=== PATIENT | female | born 1980 ===

== ENCOUNTER 2020-01-23 15:10 | Outpatient (REF) | payer MEDICAID, SELFPAY | END 2020-01-23 15:11 | disposition home or self-care (01) | LOC: HO.LAB 15:10 | PROVIDERS: PCP Student in an Organized Health Care Education/Training Program; Visit Provider Internal Medicine | DX: Z20.828 Contact with and (suspected) exposure to other viral communicable diseases (principal) | CPT/HCPCS: 87635 ==

== ENCOUNTER 2020-02-19 17:08 | Outpatient (REF) | payer MEDICAID, SELFPAY ==
--- NOTE | 2020-02-19 | XR_ITS ---
EXAMINATION: XR ELBOW, LEFT CLINICAL INFORMATION: Pain left elbow. COMPARISON: None TECHNIQUE: AP, lateral, and oblique views of the left elbow. FINDINGS: There is no visible acute fracture, dislocation or joint effusion. There is mild spurring along the anterior coronoid process. Mild periosteal thickening along the distal medial cortex ulnar side with intervening small defect, question old injury. No other abnormality seen. XR/XR elbow LT min 3V IMPRESSION: 1. Mild spurring along the anterior coronoid process. 2. Mild periosteal thickening along the medial distal humeral cortex ulnar side likely old injury. If patient has pain in this region, further evaluation with CT or MRI can be performed.
== END 2020-02-19 17:09 | disposition home or self-care (01) ==
LOC: HO.XRAY 17:08
PROVIDERS: PCP Student in an Organized Health Care Education/Training Program; Visit Provider Family Medicine
DX: M25.522 Pain in left elbow (principal)
CPT/HCPCS: 73080

== ENCOUNTER 2020-07-18 12:50 | Outpatient (REF) | payer MEDICAID, SELFPAY ==
[2020-07-18 14:06] LABS: COVID-19 Test Negative (Negative)
== END 2020-07-18 12:51 | disposition home or self-care (01) ==
LOC: HO.LAB 12:50
PROVIDERS: Visit Provider Internal Medicine
DX: Z20.822 Contact with and (suspected) exposure to COVID-19 (principal)
CPT/HCPCS: 36415; 87635; C9803

== ENCOUNTER 2020-09-18 14:04 | Outpatient (REF) | payer MEDICAID, SELFPAY ==
--- NOTE | ~2020-09-18 | US_ITS ---
EXAMINATION: US SOFT TISSUE OF THE NECK CLINICAL INFORMATION: Supraclavicular lymphadenopathy. COMPARISON: None TECHNIQUE: Linear transducer grayscale and color Doppler examination of the left supraclavicular area. FINDINGS: There are 4 left supraclavicular lymph nodes identified. These are normal in size and demonstrate normal ultrasound morphology and flow. The largest measures 7 x 8 x 8 mm. US/US soft tiss head and/or neck IMPRESSION: Four normal-appearing left supraclavicular lymph nodes.
== END 2020-09-18 14:05 | disposition home or self-care (01) ==
LOC: HO.US 14:04
PROVIDERS: Visit Provider Nurse Practitioner Family
DX: R59.0 Localized enlarged lymph nodes (principal)
CPT/HCPCS: 76536

== ENCOUNTER 2021-02-19 13:14 | Outpatient (REF) | payer MEDICAID, SELFPAY ==
--- NOTE | ~2021-02-19 | XR_ITS ---
EXAMINATION: XR SHOULDER, RIGHT. XR ELBOW, RIGHT. CLINICAL INFORMATION: Right arm pain COMPARISON: None TECHNIQUE: 4 views of the right shoulder. 3 views of the right elbow. FINDINGS: Right shoulder: Normal alignment. No fracture. No significant degenerative findings. Bone mineralization is normal. No suspicious soft tissue calcifications. Right elbow: Normal alignment. No fracture. No joint effusion. No significant degenerative findings. XR/XR elbow RT 2V IMPRESSION: Right shoulder: Normal. Right elbow: Normal.
--- NOTE | ~2021-02-19 | XR_ITS ---
EXAMINATION: XR SHOULDER, RIGHT. XR ELBOW, RIGHT. CLINICAL INFORMATION: Right arm pain COMPARISON: None TECHNIQUE: 4 views of the right shoulder. 3 views of the right elbow. FINDINGS: Right shoulder: Normal alignment. No fracture. No significant degenerative findings. Bone mineralization is normal. No suspicious soft tissue calcifications. Right elbow: Normal alignment. No fracture. No joint effusion. No significant degenerative findings. XR/XR shoulder RT min 2V IMPRESSION: Right shoulder: Normal. Right elbow: Normal.
== END 2021-02-19 13:15 | disposition home or self-care (01) ==
LOC: HO.XRAY 13:14
PROVIDERS: Absent Provider Student in an Organized Health Care Education/Training Program; PCP Student in an Organized Health Care Education/Training Program; Visit Provider Family Medicine
DX: M79.601 Pain in right arm (principal)
CPT/HCPCS: 73030; 73070

== ENCOUNTER 2021-09-09 09:40 | Outpatient (REF) | payer MEDICAID, SELFPAY ==
--- NOTE | ~2021-09-09 | US_ITS ---
EXAMINATION: US PELVIS CLINICAL INFORMATION: Abnormal uterine bleeding COMPARISON: Previous pelvic ultrasound August 2007 TECHNIQUE: Ultrasound of the pelvis is performed using both transabdominal and transvaginal transducers along with Doppler. Transvaginal imaging is performed due to inadequate visualization transabdominally. FINDINGS: The uterus is anteverted and measures 10 x 6.5 x 7.4 cm in dimension. There is a 3.3 x 2.8 x 2.6 cm hypoechoic lesion in the left anterior upper uterine body or lower fundus suggestive of a fibroid. No other focal uterine lesion is seen. Endometrial thickness is normal measuring 1.3 cm. The cervix is normal. The right ovary is enlarged and measures 5.5 x 3.7 x 3.8 cm. There is a 3.2 x 3.3 x 3.9 cm simple right ovarian cyst. The left ovary is normal and measures 2.5 x 0.9 x 2 cm. There is no fluid in the pelvis. US/US pelvic and transvaginal IMPRESSION: 3.2 x 3.3 x 3.9 cm uterine fibroid. Enlarged left ovary and 3.2 x 3.3 x 3.9 cm simple left ovarian cyst.
== END 2021-09-09 09:41 | disposition home or self-care (01) ==
LOC: HO.HMGCX 09:40
PROVIDERS: Visit Provider Advanced Practice Midwife
DX: N93.9 Abnormal uterine and vaginal bleeding, unspecified (principal)
CPT/HCPCS: 76830; 76856

== ENCOUNTER 2022-12-16 19:41 | Outpatient (REF) | payer MEDICAID, SELFPAY | END 2022-12-16 19:42 | disposition home or self-care (01) | LOC: HO.HHCL 19:41 | PROVIDERS: Visit Provider Pediatrics | DX: N30.01 Acute cystitis with hematuria (principal) | CPT/HCPCS: 87086 ==

== ENCOUNTER 2023-01-12 11:42 | Outpatient (REF) | payer MEDICAID, SELFPAY ==
[2023-01-12 14:31] LABS: Hematocrit 39.6 % (37.0-47.0); Hemoglobin 13.1 g/dl (12.0-16.0); Mean Corpuscular HGB Conc 33.1 g/dl (31.0-35.0); Mean Corpuscular Hemoglobin 27.3 pg (27.0-33.0); Mean Corpuscular Volume 82.5 fL (80.0-98.0); Mean Platelet Volume 9.8 fL (9.4-12.3); Platelet Count 436 X10*3/uL (160-400); Red Cell Distribution Width 13.2 % (11.0-16.0); White Blood Count 10.5 X10*3/uL (4.8-10.8)
[2023-01-12 15:07] LABS: TSH reflex Free T4 2.29 uIU/mL (0.32-4.0)
[2023-01-14 19:39] LABS: TS Negative Control Passed; TS Panel A 0; TS Panel B 0; TS Positive Control Passed; TSpotTB Negative (Negative)
== END 2023-01-12 11:43 | disposition home or self-care (01) ==
LOC: HO.CHCLDS 11:42
PROVIDERS: Visit Provider Advanced Practice Midwife
DX: Z11.1 Encounter for screening for respiratory tuberculosis (principal); N93.9 Abnormal uterine and vaginal bleeding, unspecified; A15.0 Tuberculosis of lung
CPT/HCPCS: 36415; 84443; 85027; 86481

== ENCOUNTER 2023-01-25 12:48 | Outpatient (REF) | payer MEDICAID, SELFPAY ==
--- NOTE | ~2023-01-25 | US_ITS ---
EXAMINATION: US PELVIS CLINICAL INFORMATION: Last menstrual period 01/05/2023. Fibroid. COMPARISON: 11/09/2021 TECHNIQUE: Ultrasound of the pelvis is performed using both transabdominal and transvaginal transducers along with Doppler. Transvaginal imaging is performed due to inadequate visualization transabdominally. FINDINGS: The uterus is anteverted, heterogeneous and measures 7.8 x 5.6 x 6.2 cm. A 3.8 x 3.4 x 3.9 cm hypoechoic lesion within the uterus is characteristic of a fibroid. Limited visualization due to bowel gas and uterine heterogeneity. Previous exam demonstrated a 3.3 x 2.8 x 2.6 cm left anterior upper uterine body or lower fundal fibroid. Double wall endometrial thickness is 0.6 cm. No significant free fluid in the pelvis. Right ovary measures 2.2 x 1.0 x 1.1 cm, volume 2.1 mL. Right ovary is unremarkable. Left ovary not visualized. US/US pelvic and transvaginal IMPRESSION: 1. A 3.9 cm hypoechoic lesion within the uterus is characteristic of a fibroid. Previous exam demonstrated a 3.3 cm left anterior upper uterine body or lower fundal fibroid. 2. Double wall endometrial thickness is 0.6 cm. 3. Unremarkable right ovary. Left ovary not visualized. 4. Limited visualization due to bowel gas.
== END 2023-01-25 12:49 | disposition home or self-care (01) ==
LOC: HO.HMGCX 12:48
PROVIDERS: PCP Student in an Organized Health Care Education/Training Program; Visit Provider Advanced Practice Midwife
DX: D21.9 Benign neoplasm of connective and other soft tissue, unspecified (principal)
CPT/HCPCS: 76830; 76856

== ENCOUNTER 2023-02-01 11:40 | Outpatient (REF) | payer MEDICAID, SELFPAY ==
[2023-02-01 14:25] LABS: MANUAL DIFF FLAG NO
[2023-02-01 14:30] LABS: Basophils Percent Auto 0.3 % (0-2); Eosinophils Absolute Auto 0.5 X10*3/uL (0.0-0.4); Eosinophils Percent Auto 4.7 % (0-4); Imm Gran Abs Auto 0.04 X10*3/uL (0.00-0.03); Imm Gran Pct Auto 0.4 % (0.0-0.4); Lymphocytes Percent Auto 28.4 % (20-40); Mean Corpuscular HGB Conc 32.5 g/dl (31.0-35.0); Mean Corpuscular Hemoglobin 26.7 pg (27.0-33.0); Mean Corpuscular Volume 82.1 fL (80.0-98.0); Mean Platelet Volume 9.7 fL (9.4-12.3); Monocytes Absolute Auto 0.5 X10*3/uL (0.1-1.2); Monocytes Percent Auto 5.2 % (2-11); Neutrophils Absolute Auto 6.4 x10*3/uL (2.0-8.3); Platelet Count 409 X10*3/uL (160-400); Red Blood Count 4.87 X10*6/uL (4.20-5.50); Red Cell Distribution Width 13.2 % (11.0-16.0); White Blood Count 10.4 X10*3/uL (4.8-10.8)
[2023-02-01 15:02] LABS: Vitamin D 25-OH Total 39.9 ng/mL (>30)
== END 2023-02-01 11:41 | disposition home or self-care (01) ==
LOC: HO.CHCLDS 11:40
PROVIDERS: Visit Provider Student in an Organized Health Care Education/Training Program
DX: E55.9 Vitamin D deficiency, unspecified (principal); R79.89 Other specified abnormal findings of blood chemistry
CPT/HCPCS: 36415; 82306; 85025

== ENCOUNTER 2023-02-02 10:55 | Outpatient (REF) | payer MEDICAID, SELFPAY ==
[2023-02-03 04:25] LABS: ~HepC Num1 0.06 S/CO (0.00-0.79); ~Hepatitis C Antibody Nonreactive (Nonreactive)
[2023-02-05 19:08] LABS: HIV RNA PCR Qn Copies Not Detected Copies/mL; HIV RNA PCR Qn Log Copies Not Detected Log cps/mL
== END 2023-02-02 10:56 | disposition home or self-care (01) ==
LOC: HO.CHCLDS 10:55
PROVIDERS: Visit Provider Student in an Organized Health Care Education/Training Program
DX: Z00.00 Encounter for general adult medical examination without abnormal findings (principal)
CPT/HCPCS: 36415; 86803; 87536; 87900

== ENCOUNTER 2023-07-13 08:07 | Outpatient (REF) | payer MEDICAID, SELFPAY ==
--- NOTE | ~2023-07-13 | FL_ITS ---
EXAMINATION: XR FLUOROSCOPY UPPER GI WITH AIR CLINICAL INFORMATION: Dysphagia COMPARISON: None TECHNIQUE: Fluoroscopic air contrast upper GI examination was performed utilizing standard techniques with thin and thick barium and effervescent granules. Numerous spot images were obtained. FINDINGS: Lateral cine images of the oropharynx and hypopharynx demonstrate normal swallow mechanism with normal epiglottic inversion and soft palate elevation. No tracheal penetration, glottic or subglottic aspiration identified. No nasopharyngeal reflux present. Hypopharyngeal structures appear normal without evidence of mass or diverticulum. There was mild cricopharyngeal achalasia. Dual and single contrast images of the esophagus demonstrate normal caliber and contour. There is felinization of the mid esophageal mucosa. No evidence of stricture, mass, or ulcerations identified. Esophageal peristalsis was normal. A very small type I hiatal hernia is present. Gastroesophageal reflux is seen up to the aortic arch. Dual contrast and single contrast images of the stomach demonstrated a normal contour. There are multiple small well-circumscribed filling defects in the fundus and body of the stomach that likely represent hyperplastic polyps. There is mild thickening of the areae gastricae, particularly in the distal body and antrum. No masses or ulcerations are seen. Contrast freely passed into the gastric antrum and duodenal bulb without delay. Single and air-contrast images of the duodenal bulb demonstrate no abnormality. The duodenal sweep has a normal appearance, course, and mucosal fold appearance. No malrotation. The imaged proximal jejunum has a normal fold pattern and caliber. FLUOROSCOPY TIME: 3 minutes 3 seconds Number of Spot Images: 9 Number of Cine: 12 DOSE AREA PRODUCT: 1917 uGy-m2 (microgray-meter squared) FL/FL barium swallow with air IMPRESSION: 1. Felinization of the mid esophageal mucosa. This is a benign finding that is typically associated with gastroesophageal reflux. 2. Mild cricopharyngeal achalasia. 3. Small type I hiatal hernia. 4. Mild to moderate gastroesophageal reflux. 5. Multiple small well-circumscribed filling defects in the fundus and body the stomach that likely represent hyperplastic polyps. There is mild thickening of the areae gastricae, particularly in the distal body and antrum. Findings likely represent gastritis. Recommend correlation with EGD. This procedure was performed by Erick Heredia PA-C, and supervised by Dr. London
== END 2023-07-13 08:08 | disposition home or self-care (01) ==
LOC: HO.XRAY 08:07
PROVIDERS: PCP Student in an Organized Health Care Education/Training Program; Visit Provider Family Medicine
DX: R13.10 Dysphagia, unspecified (principal)
CPT/HCPCS: 74221

== ENCOUNTER → 2023-07-13 08:09 | Outpatient (BNV) | payer MEDICAID, SELFPAY | PROVIDERS: PCP Student in an Organized Health Care Education/Training Program; Visit Provider Physician Assistant Surgical | DX: R13.10 Dysphagia, unspecified (principal) | CPT/HCPCS: 74221 ==

== ENCOUNTER 2023-08-05 10:26 | Outpatient (AMB) | payer MEDICAID, SELFPAY ==
--- NOTE | 2023-08-05 10:42 | A.OFFVIS_ITS ---
Vital Signs 08/05/23 10:44 Height 5 ft 2 in Weight 150 lb BMI 27.4 BP 108/60 Intake Visit Reasons: AUB/wants ablation/PCP referral Direct Customer Service Representative Required: No Information Interpreted: non-clinical & clinical Tobacco Conditioner: Tobacco Conditioner Present (Yolande Hawley BUBBA) Accompanied by: Self / Same As Patient Allergies No Known Allergies Allergy (Unknown, Unverified 08/05/23 10:45) Is last menstrual period known: Yes Last menstrual period: 08/02/23 HPI Comments Details: Presenting complaining of irregular menstrual cycles associated with passage of blood clots and pelvic cramps. PFSH Medical History GERD (gastroesophageal reflux disease) Depression Anxiety Surgical History Hx of tubal ligation Family History Mother HTN (hypertension) Stroke (cerebrum) Father Heart attack Other Diabetes Social History Household Members: Children Housing: House Alcohol intake: current Alcohol intake frequency: holidays/special occasions only Patient Tobacco Use Status: Never used Tobacco Current occupational status: employed Current occupation: [employer] Sexually active: Yes Sexual orientation: Straight/Heterosexual Gender identity: Female Female Reproductive History Menstrual Date of last menstrual period: 08/02/23 control method: permanent sterilization Total pregnancies: 4 Full term: 4 Number of Living Children: 4 Review of Systems Const All systems reviewed & are unremarkable except as noted in HPI and below Card Reports as per HPI Resp Reports as per HPI GI Reports as per HPI and Reports no additional complaints Reports as per HPI Physical Exam Vital Signs: Last Vital Signs BP 108/60 08/05/23 10:44 BMI result Body Mass Index 27.4 Const General: cooperative, healthy appearing and comfortable Chest Chest palpation & inspection: normal inspection of the chest and normal palpation of entire chest wall Breast/axilla inspection: normal inspection of the breasts and normal inspection of the axillae Breast/axilla palpation: normal palpation of the breasts, normal palpation of the axillae and no axillary lymphadenopathy Resp Effort & Inspection: normal respiratory effort Auscultation: clear to auscultation bilaterally Percussion: percussion normal Cardio Palpation: normal PMI Rate: regular rate Rhythm: regular rhythm Heart sounds: no murmurs and no rubs Peripheral pulses: Peripheral pulses 2+ throughout GI Inspection: Yes normal to inspection Palpation (GI): Soft to palpation, nontender, no guarding, not rigid and No hepatosplenomegaly present Percussion: Yes normal to percussion Auscultation: normal bowel sounds Rectal Exam - Female: deferred General: Yes bladder normal to palpation External Female Exam: No lesion Speculum Exam - Vagina: normal appearance of the vagina, normal palpation, normal vaginal discharge and not erythematous Speculum Exam - Cervix: normal appearance of the cervix and normal palpation Bimanual exam- vagina & uterus: normal bimanual exam, normal palpation, uterine size normal, bladder normal to palpation, consistency normal and normal palpation Bimanual Exam- Adnexa, other: normal adnexae, no masses and no tenderness Results AMB Test Urine AMB Test Urine Negative Last Edit by Yolande Hawley CMA on 10:56 Results Reviewed Results Reviewed: Laboratory Last Values Tst Clinic Negative 08/05/23 10:55 Assessment & Plan Assessment & Plan (1) Abnormal uterine bleeding: Code(s): N93.9 - Abnormal uterine and vaginal bleeding, unspecified Category: Medical Plan: Screening mammogram, Co testing done, GC and chlamydia taken CBC, TSH, prolactin, HCG, and pelvic ultrasound ordered. Discussed with the patient the different causes of abnormal bleeding including thyroid disorders, uterine and ovarian pathology, endometrial hyperplasia, carcinoma and other potential causes. Discussed with the patient the work up including CBC (to r/o anemia), TSH, prolactin, pelvic Ultrasound, endometrial biopsy to r/o endometrial pathology. All questions answered and the patient verbalized understanding. Instructed the patient to schedule an appointment for an endometrial biopsy in 2 weeks. Orders: Orders AMB HCG Urine Test Today Z32.02 - Encounter for test, result negative MM screening mammo BI Today Z12.31 - Encounter for screening mammogram for malignant neoplasm of breast TSH reflex Free T4 Today N93.9 - Abnormal uterine and vaginal bleeding, unspecified Prolactin Today N93.9 - Abnormal uterine and vaginal bleeding, unspecified Complete Blood Count no Diff Today N93.9 - Abnormal uterine and vaginal bleeding, unspecified Pap Smear Today N93.9 - Abnormal uterine and vaginal bleeding, unspecified CT NG by PCR Today N93.9 - Abnormal uterine and vaginal bleeding, unspecified US pelvic and transvaginal Today N93.9 - Abnormal uterine and vaginal bleeding, unspecified HCG Quantitative Today N93.9 - Abnormal uterine and vaginal bleeding, unspecified Coding Level of Care Code New Pt Level 3 (11770) Diagnoses Abnormal uterine bleeding N93.9
[2023-08-05 10:44] VITALS: BP 108/60; BMI 27.4
== END 2023-08-05 11:07 | disposition home or self-care (01) ==
PROVIDERS: PCP Student in an Organized Health Care Education/Training Program; Referring Provider Student in an Organized Health Care Education/Training Program; Visit Provider Obstetrics & Gynecology
DX: N93.9 Abnormal uterine and vaginal bleeding, unspecified (principal); Z32.02 Encounter for pregnancy test, result negative
CPT/HCPCS: 99203

== ENCOUNTER 2023-08-05 10:26 | Outpatient (REF) | payer MEDICAID, SELFPAY ==
[2023-08-05 18:23] LABS: CT PCR NOT DETECTED (Not Detect.); NG PCR NOT DETECTED (Not Detect.)
[2023-08-13 03:14] LABS: HPV mRNA E6/E7 rflx Not Detected (Not Detected)
== END 2023-08-05 10:27 | disposition home or self-care (01) ==
LOC: HO.LNP 10:26
PROVIDERS: PCP Student in an Organized Health Care Education/Training Program; Visit Provider Obstetrics & Gynecology
DX: N93.9 Abnormal uterine and vaginal bleeding, unspecified (principal); Z11.51 Encounter for screening for human papillomavirus (HPV)
CPT/HCPCS: 0353U; 81025; 87624; 88142; 99202

== ENCOUNTER → 2023-09-08 10:15 | Outpatient (BNV) | payer MEDICAID, SELFPAY | PROVIDERS: PCP Student in an Organized Health Care Education/Training Program; Visit Provider Radiology Diagnostic Radiology | DX: Z12.31 Encounter for screening mammogram for malignant neoplasm of breast (principal) | CPT/HCPCS: 77063; 77067 ==

== ENCOUNTER 2023-09-08 10:17 | Outpatient (REF) | payer MEDICAID, SELFPAY ==
--- NOTE | ~2023-09-08 | MM_ITS ---
EXAMINATION: MM SCREENING DIGITAL BREAST TOMOSYNTHESIS, BILATERAL CLINICAL INFORMATION: Screening. Asymptomatic. COMPARISON: Mammography: This is a baseline mammogram TECHNIQUE: Digital breast tomosynthesis is performed in both the craniocaudal and mediolateral oblique views along with computer-aided detection (CAD). Synthesized 2D images are generated from the tomosynthesis. FINDINGS: There are scattered areas of fibroglandular density (ACR BI-RADS breast composition Category b). There are no significant masses, abnormal calcifications, or other abnormalities. MM/MM tomosynthesis screening BI IMPRESSION: No mammographic evidence of malignancy. ASSESSMENT: BI-RADS BI-RADS 1 - Negative RECOMMENDATION: Routine annual mammography screening. 1 year F/U This examination should not preclude the clinical evaluation of a suspicious palpable abnormality. This patient's information was entered into a reminder system with a target due date for their next mammogram.
== END 2023-09-08 10:18 | disposition home or self-care (01) ==
LOC: HO.MAMMO 10:17
PROVIDERS: PCP Student in an Organized Health Care Education/Training Program; Visit Provider Obstetrics & Gynecology
DX: Z12.31 Encounter for screening mammogram for malignant neoplasm of breast (principal)
CPT/HCPCS: 77063; 77067

== ENCOUNTER 2023-09-09 14:02 | Outpatient (REF) | payer MEDICAID, SELFPAY ==
--- NOTE | ~2023-09-09 | US_ITS ---
EXAMINATION: US PELVIS CLINICAL INFORMATION: Abnormal uterine bleeding, last menstrual period August 24, 2023. COMPARISON: January 25, 2023 TECHNIQUE: Ultrasound of the pelvis is performed using both transabdominal and transvaginal transducers along with Doppler. Transvaginal imaging is performed due to inadequate visualization transabdominally. FINDINGS: Uterus anteverted and measures 8.3 x 5.7 x 6.7 cm. 3.8 x 3.0 x 3.9 cm hypoechoic lesion characteristic of a fibroid previously measured 3.8 x 3.4 x 3.9 cm. Endometrial thickness of 9 mm. The 3.9 cm fibroid abuts the endometrium. Limited visualization of the endometrium due to the fibroid as well as body habitus. No significant free fluid. Right ovary poorly visualized and seen only on transabdominal ultrasound images. Right ovary measures 2.4 x 1.1 x 2.3 cm, volume 3.2 mL. Left ovary seen only on limited transabdominal ultrasound images and measures 3.4 x 1.9 x 3.9 cm, volume 13.2 mL. Left ovarian 1.7 x 1.5 x 1.7 cm simple cyst, likely physiologic. There is no specific indication for additional imaging at this time. US/US pelvic and transvaginal IMPRESSION: 1. Endometrial thickness of 9 mm. The 3.9 cm fibroid abuts the endometrium. Limited visualization of the endometrium due to the fibroid as well as body habitus. Gynecologic consultation recommended to determine further management including possible biopsy.
[2023-09-09 15:59] LABS: Hematocrit 36.6 % (37.0-47.0); Hemoglobin 11.9 g/dl (12.0-16.0); Mean Corpuscular HGB Conc 32.5 g/dl (31.0-35.0); Mean Corpuscular Hemoglobin 25.9 pg (27.0-33.0); Mean Corpuscular Volume 79.7 fL (80.0-98.0); Mean Platelet Volume 9.9 fL (9.4-12.3); Platelet Count 384 X10*3/uL (160-400); Red Blood Count 4.59 X10*6/uL (4.20-5.50); Red Cell Distribution Width 14.3 % (11.0-16.0); White Blood Count 10.9 X10*3/uL (4.8-10.8)
[2023-09-09 16:29] LABS: HCG Quantitative < 2 mIU/mL; TSH reflex Free T4 1.13 uIU/mL (0.32-4.0)
[2023-09-10 07:34] LABS: Prolactin 9.3 ng/mL
== END 2023-09-09 14:03 | disposition home or self-care (01) ==
LOC: HO.HMGCX 14:02
PROVIDERS: PCP Student in an Organized Health Care Education/Training Program; Visit Provider Obstetrics & Gynecology
DX: N93.9 Abnormal uterine and vaginal bleeding, unspecified (principal)
CPT/HCPCS: 36415; 76830; 76856; 84146; 84443; 84702; 85027

== ENCOUNTER 2023-09-10 13:01 | Outpatient (REF) | payer MEDICAID, SELFPAY ==
[2023-09-11 03:07] LABS: CT PCR NOT DETECTED (Not Detect.); NG PCR NOT DETECTED (Not Detect.)
[2023-09-11 11:05] LABS: Bacterial Vaginosis PCR POSITIVE (Negative); Candida Group PCR DETECTED (Not Detect); Candida glab krusei PCR NOT DETECTED (Not Detect); Trichomonas vaginalis PCR NOT DETECTED (Not Detect)
[2023-09-13 04:04] LABS: HBS Num1 7.83 mIU/mL (0-7.99); HBc Num1 0.14 S/CO (0.00-0.79); HBsAGNum1 0.38 S/CO (0.00-0.99); HIV AB/AG Nonreactive (Nonreactive); HIV Num 1 0.07 S/CO (0.00-0.99); Hepatitis B Core Antibody Nonreactive (Nonreactive); Hepatitis B Surface Antigen Negative (Negative); ~HepC Num1 0.09 S/CO (0.00-0.79); ~Hepatitis B Surface Antibody NONREACTIVE (Nonreactive); ~Hepatitis C Antibody Nonreactive (Nonreactive)
[2023-09-13 10:49] LABS: RPR Rapid Plasma Reagin NON-REACTIVE (NON-REACTIVE)
== END 2023-09-10 13:02 | disposition home or self-care (01) ==
LOC: HO.HHCL 13:01
PROVIDERS: Visit Provider Emergency Medicine
DX: N89.8 Other specified noninflammatory disorders of vagina (principal)
CPT/HCPCS: 0352U; 0353U; 36415; 86592; 86704; 86706; 86803; 87340; 87389

== ENCOUNTER 2023-12-21 11:30 | Emergency (ER) | payer MEDICAID, SELFPAY ==
--- NOTE | ~2023-12-21 | CT_ITS ---
EXAMINATION: CT HEAD WITHOUT CONTRAST CLINICAL INFORMATION: Headache. Dizziness. Lightheadedness. Blurry vision. COMPARISON: None available. TECHNIQUE: Contiguous axial imaging was performed from the skull base to vertex without intravenous administration of contrast. This CT examination was performed using dose optimization techniques as appropriate, variously including the following: *Automated exposure control. *Adjustment of mA and/or kV according to patient size (this includes techniques or standardized protocols for targeted exams where dose is matched to indication/reason for exam; i.e. extremities or head). *Use of iterative reconstruction technique. DLP: 631 mGy-cm FINDINGS: There is no evidence of acute intracranial hemorrhage or edematous territorial infarction. Potential tubular hyperattenuating structure in the left frontal operculum with surrounding white matter hypoattenuation. Otherwise, brink-white matter differentiation is preserved. No additional abnormal attenuation within the brain parenchyma. Persistent cavum septum pellucidum et vergae. The ventricles are normal in morphology and size. No evidence for obstructive hydrocephalus. No abnormal mass effect or midline shift. No extra-axial fluid collections. No acute soft tissue or osseous abnormalities. Congenital nonunion of the posterior arch of C1. The mastoid air cells and visualized paranasal sinuses are clear. CT/CT head/brain wo IV con IMPRESSION: 1. No evidence of acute intracranial hemorrhage or edematous territorial infarction. 2. There appears to be a tubular hyperattenuating structure in the left frontal operculum suggestive of an underlying vascular malformation (potentially an arteriovenous malformation versus developmental venous anomaly). This could be further characterized with follow-up vascular imaging (CTA or MRI/MRA with contrast). Electronically signed by: Lalo Damon DO 12/21/2023 08:04 PM EDT
--- NOTE | ~2023-12-21 | CT_ITS ---
EXAMINATION: CT ANGIOGRAM HEAD CT ANGIOGRAM NECK CLINICAL INFORMATION: Dizziness. Left frontal arteriovenous malformation. COMPARISON: CT head from 12/21/2023. TECHNIQUE: Initial noncontrast consumer services consultant imaging of the head and neck was performed. Comparison is made with noncontrast head CT from earlier today. Test bolus sequences followed by intravenous administration 70 mL of Omnipaque 350. Helical imaging was performed in the axial plane from the aortic arch to the skull vertex. Delayed postcontrast imaging of the head was also performed. The data was processed at the process safety engineering technologist's workstation for generation of MIP sequences. Angled MIPs and volume rendered reformatted images were also generated at an offline 3D workstation. Stenoses are assessed in accordance with NASCET criteria unless otherwise indicated. This CT examination was performed using dose optimization techniques as appropriate, variously including the following: *Automated exposure control. *Adjustment of mA and/or kV according to patient size (this includes techniques or standardized protocols for targeted exams where dose is matched to indication/reason for exam; i.e. extremities or head). *Use of iterative reconstruction technique. DLP: 1416 mGy-cm FINDINGS: CT Head: There is no evidence of acute intracranial hemorrhage or edematous territorial infarction. Arterial enhancing tingle of irregular vessels centered in the left frontal operculum with nidus measuring approximately 1.4 x 1.3 x 1.3 cm. Ectatic venous structures in this region measure up to 0.4 cm in diameter. Otherwise, brink-white matter differentiation is preserved. No additional abnormal attenuation within the brain parenchyma. Persistent cavum septum pellucidum et vergae. The ventricles are normal in morphology and size. No evidence for obstructive hydrocephalus. No abnormal mass effect or midline shift. No extra-axial fluid collections. No additional abnormal intracranial enhancement. No acute soft tissue or osseous abnormalities. Mild mucosal thickening of the paranasal sinuses. The mastoid air cells and middle ear cavities are clear. CT Neck: The thyroid gland and remaining cervical soft tissues are within normal limits. Moderate degenerative disc disease from C5-C7. Congenital nonunion of the posterior arch of C1. CT Upper Chest: The visualized lung apices and upper mediastinum are within normal limits. Neck CTA: Aortic Arch: Normal contour and caliber. Classic 3 vessel branching pattern of the aortic arch. Great Vessel Origins: No significant stenosis of the branch origins. Right Common Carotid Artery: No focal stenosis or occlusion. Cervical Right Internal Carotid Artery: Normal opacification without focal stenosis or occlusion. Left Common Carotid Artery: No focal stenosis or occlusion. Cervical Left Internal Carotid Artery: Normal opacification without focal stenosis or occlusion. Cervical Right Vertebral Artery: Co-dominant. No focal stenosis or occlusion. Cervical Left Vertebral Artery: Co-dominant. No focal stenosis or occlusion. Brain CTA: Intracranial Internal Carotid Arteries: Mild calcific atherosclerotic disease of the intracranial internal carotid arteries without occlusion or flow-limiting stenosis. Right Anterior Cerebral Artery: Normal A1 segment. Normal opacification of the distal DASHAWN segments. Left Anterior Cerebral Artery: Normal A1 segment. Normal opacification of the distal DASHAWN segments. Anterior Communicating Artery: Normal. Right Middle Cerebral Artery: Normal M1 segment of the MCA without focal stenosis or occlusion. Normal arborization of the distal segments. Left Middle Cerebral Artery: Normal M1 segment of the MCA without focal stenosis or occlusion. Normal arborization of the distal segments. Right Vertebral Artery: Normal V4 segment. Normal opacification of the proximal segments of the posterior inferior cerebellar artery. Left Vertebral Artery: Normal V4 segment. Normal opacification of the proximal segments of the posterior inferior cerebellar artery. Basilar Artery: Normal without focal stenosis or occlusion. Normal appearance of the proximal superior cerebellar arteries. Right Posterior Cerebral Artery: The P1 segment is diminutive. origin of the [employer]MENT [employer]NAGER with robust opacification of the posterior communicating artery. Normal opacification of the distal [employer]MENT MANAGER segments. Left Posterior Cerebral Artery: Normal P1 segment. Normal posterior communicating artery. Normal opacification of the distal [employer]MENT MANAGER segments. Normal opacification of the superior sagittal, straight, transverse, and sigmoid sinuses. CT/CT angio head neck IMPRESSION: 1. 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 Ectatic venous structures in this region measure up to 0.4 cm in diameter. 2. No evidence of acute intracranial hemorrhage or edematous territorial infarction. 3. CTA of the head and neck without proximal occlusion or flow-limiting stenosis. Electronically signed by: Lalo Damon DO 12/21/2023 10:25 PM EDT
[2023-12-21 11:44] VITALS: BP 124/84; PULSE 90; RESP 18; TEMP 37.1; O2SAT 99; BMI 29.3
[2023-12-21] MEDS: Ondansetron ODT 4 MG TAB.RAPDIS TRANSLINGU ×2 (11:55→23:59)
[2023-12-21 12:38] LABS: MANUAL DIFF FLAG NO
[2023-12-21 12:45] LABS: Basophils Absolute Auto 0.1 X10*3/uL (0.0-0.2); Basophils Percent Auto 0.4 % (0-2); Eosinophils Absolute Auto 0.2 X10*3/uL (0.0-0.4); Eosinophils Percent Auto 1.7 % (0-4); Hematocrit 39.8 % (37.0-47.0); Hemoglobin 13.4 g/dl (12.0-16.0); Imm Gran Abs Auto 0.04 X10*3/uL (0.00-0.03); Imm Gran Pct Auto 0.3 % (0.0-0.4); Lymphocytes Absolute Auto 1.9 X10*3/uL (1.2-4.9); Lymphocytes Percent Auto 16.6 % (20-40); Mean Corpuscular HGB Conc 33.7 g/dl (31.0-35.0); Mean Corpuscular Hemoglobin 27.1 pg (27.0-33.0); Mean Corpuscular Volume 80.4 fL (80.0-98.0); Mean Platelet Volume 9.1 fL (9.4-12.3); Monocytes Absolute Auto 0.6 X10*3/uL (0.1-1.2); Monocytes Percent Auto 4.8 % (2-11); Neutrophils Absolute Auto 8.8 x10*3/uL (2.0-8.3); Neutrophils Percent Auto 76.2 % (45-73); Platelet Count 414 X10*3/uL (160-400); Red Blood Count 4.95 X10*6/uL (4.20-5.50); Red Cell Distribution Width 13.1 % (11.0-16.0); White Blood Count 11.5 X10*3/uL (4.8-10.8)
[2023-12-21 13:08] LABS: Alanine Aminotransferase 14 U/L (0-31); Albumin Level 4.3 g/dL (3.5-5.0); Alkaline Phosphatase 115 U/L (39-117); Anion Gap 10 (12-20); Aspartate Amino Transferase 18 U/L (5-31); Bilirubin Total 0.4 mg/dL (0.0-1.0); Blood Urea Nitrogen 5 mg/dL (9-16); Calcium 9.5 mg/dL (8.4-10.2); Carbon Dioxide 27 mmol/L (22-29); Chloride 106 mmol/L (96-108); Creatinine Clr Calc Pharmacy 93.6; Estimated Glomerular Filt Rate > 60; Glucose Random 96 mg/dL (60-115); Lipase 16 U/L (8-78); Magnesium 2.2 mg/dL (1.6-2.6); Potassium 4.2 mmol/L (3.3-5.1); Sodium 139 mmol/L (135-145); Total Protein 8.3 g/dL (6.5-8.0)
[2023-12-21 13:11] LABS: HCG Quantitative < 2 mIU/mL
[2023-12-21 18:19] VITALS: BP 117/64; PULSE 80; RESP 16; TEMP 36.8; O2SAT 100
[2023-12-21 18:48] VITALS: BP 129/75; PULSE 75
[2023-12-21 18:49] VITALS: BP 116/79; PULSE 89
--- NOTE | 2023-12-21 18:51 | ED_ITS ---
HPI - Dizziness General Chief Complaint: Dizziness Stated Complaint: Nausea, dizziness Time Seen by Provider: 12/21/23 17:22 Source: patient, RN notes reviewed and old records reviewed Mode of arrival: ambulatory History of Present Illness ED Provider: Makayla Jules PA-C HPI Narrative: C Also reports intermittent bilateral blurry vision. Denies taking anticoagulation. Also reports increasing anxiety related to symptoms. Denies recent head trauma/injury, vomiting, CP/SOB, numbness, tingling, focal weakness. Related Data Home Medications ?Medication ?Instructions ?Recorded ?Confirmed citalopram 10 mg tablet (Celexa) 10 mg PO DAILY 08/05/23 pantoprazole 40 mg tablet,delayed 40 mg PO QAM 08/05/23 release Previous Rx's ?Medication ?Instructions ?Recorded ggwhveiodi-liuokfizbxzkr-trfaklkw 1 cap PO Q6H PRN pain #10 caps 12/21/23 50 mg-300 mg-40 mg capsule (Fioricet) ondansetron 4 mg disintegrating 4 mg PO Q8H PRN nausea and 12/21/23 tablet vomiting #10 tabs Allergies Allergy/AdvReac Type Severity Reaction Status Date / Time No Known Allergies Allergy Unknown Verified 12/21/23 11:48 Review of Systems 2 Review of Systems: Yes all other systems are reviewed and are negative Constitutional: Constitutional: Reports as per HPI Neurologic: Denies Abnormal speech present and Denies Sensory deficit (Neuro) [facility] Past Medical History Attestation statement: The following information was validated with the patient. 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 Sexual orientation: Straight/Heterosexual Gender identity: Female Physical Exam 2 Vital Signs: Vital Signs: Last Vital Signs Temp 98.3 F 12/21/23 22:27 Pulse 82 12/21/23 22:27 Resp 12 12/21/23 22:27 BP 117/66 12/21/23 22:27 Pulse Ox 99 12/21/23 22:27 O2 Del Method Room Air 12/21/23 22:27 BMI result Body Mass Index 29.3 Const: General: cooperative, healthy appearing and no acute distress O rientation/consciousness: patient oriented x3 Limitations: no limitations HEENT: Head: Yes normal to inspection and Yes atraumatic Ears: hearing grossly normal bilaterally and TM's normal bilaterally General nose exam: N ormal external nose present Face and sinus: Yes normal facial exam Mouth: Normal oral and palatal mucosa present Throat: Yes posterior oropharynx normal, Yes tonsils normal, Yes uvula midline, No peritonsillar mass, No uvula laterally displaced and No uvular edema Eyes: General: appearance normal, both eyes and all related structures P upils: Equal, round and reactive pupils present EOM: EOMs intact bilaterally and No Nystagmus present Neck: Neck: Yes normal visual inspection and Yes no meningeal signs Resp: Effort & Inspection: normal respiratory effort and no respiratory distress Auscultation: clear to auscultation bilaterally Cardio: Rate: regular rate Heart sounds: S1 normal heart sound present and S2 normal heart sound present GI: Inspection: Yes normal to inspection Palpation (GI): Soft to palpation, nontender, no guarding and not rigid : General: Yes no CVA tenderness Back/Spine/Pelvis: Other: No midline cervical/thoracic/lumbar spinous tenderness/step-off or deformity Back: no CVA tenderness Skin: Rashes: no rashes Wounds: no wounds Neuro: General: patient oriented x3, gait normal, tone normal, moves all extremities, no meningeal signs, no focal motor deficits and CN's II-XI intact bilaterally Cranial nerves: Yes CN's II-XII intact bilaterally, Yes Equal, round and reactive pupils present, Yes Bilaterally intact EOM present and No Nystagmus present Cognition (Neuro): normal cognition Speech: No Abnormal speech present Gait exam (Neuro): Normal gait present Motor exam (neuro): 5/5 motor strength present throughout, Pronator motor function not present and no tremor noted Sensory Exam: No Sensory deficit (Neuro) Coordination: f fuqae-va-ajtl test normal Romberg Test: Negative Extrem: General: Yes normal to inspection Course Course Course Narrative: -labs reassuring -orthostatic vital signs negative -1899--ED care transferred to [facility] pending EKG, orthostatics, remaining labs/UA and head CT. Dispo per results. Reevaluation(s) Reevaluation #1: CT/CT head/brain wo IV con IMPRESSION: 1. No evidence of acute intracranial hemorrhage or edematous territorial infarction. 2. There appears to be a tubular hyperattenuating structure in the left frontal operculum suggestive of an underlying vascular malformation (potentially an arteriovenous malformation versus developmental venous anomaly). This could be further characterized with follow-up vascular imaging (CTA or MRI/MRA with contrast). CT angio head and neck to be obtained for further evaluation. Headache at this time has resolved after receiving Fioricet. EKG revealing normal sinus rhythm with ventricular rate of 77, QTC 430, no ST elevation, no ST depression. High sensitive troponin below detectable limits. HCG is negative. LFTs and lipase within normal range, no evidence of MIGDALIA or electrolyte derangement. Viral serologies were negative. Urinalysis without compelling evidence of urinary tract infection. Reevaluation #2: CT/CT angio head neck IMPRESSION: 1. 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 Ectatic venous structures in this region measure up to 0.4 cm in diameter. 2. No evidence of acute intracranial hemorrhage or edematous territorial infarction. 3. CTA of the head and neck without proximal occlusion or flow-limiting stenosis. Reviewed this case with my attending Dr. Pittman, did not feel as though the AVM was the likely etiology of the symptoms that brought her here today, as there was no evidence of ICH or aneurysm. We discussed strict return precautions, outpatient follow-up with PCP assistance for neurosurgery referral. All questions answered. Stable for discharge Medications Administered Discontinued Medications Generic Name Dose Route Start Last Admin Trade Name Freq PRN Reason Stop Dose Admin Acetaminophen/Butalbital/Caffeine 1 tab 12/21/23 18:55 12/21/23 19:12 Butalb/Acetamin/Caff 50/325/40 Tablet PO 12/21/23 18:56 1 tab ONCE ONE Administration Sodium Chloride 1,000 mls @ 999 mls/hr 12/21/23 20:30 12/21/23 20:37 Ns IV 12/21/23 21:30 999 mls/hr .Q1H1M GUERITA Administration Iohexol 70 ml 12/21/23 21:17 12/21/23 21:18 Iohexol 350 Mg/Ml 100 Ml Infus..Btl IV 12/21/23 21:18 70 ml ONCE ONE Administration Ondansetron HCl 4 mg 12/21/23 11:52 12/21/23 11:55 Ondansetron Odt 4 Mg Tab.Rapdis TRANSLINGU 12/21/23 11:53 4 mg ONCE ONE Administration Medical Decision Making Medical Decision Making [facility] Narrative: 43-year-old female with a past medical history of GERD, depression, anxiety, presenting to the ED complaining lightheadedness, room spinning dizziness, nausea, and dull headache times 2-3 days. On exam vital signs stable, NAD, nontoxic appearing, no focal neuro deficits, ambulating with steady gait, no ataxia. Concern for metabolic abnormalities vs viral illness vs anxiety reaction vs complicated migraine vs atypical ACS vs vertigo. Lower suspicion for CVA/TIA or mass or dissection Plan: EKG, labs, UA, orthostatics, head CT, symptomatic remedies/re-evaluate Please refer to course for remaining clinical decision making, interpretation of labs/imaging results, and discussions with consultants and/or family members. Differential Diagnosis Differential Diagnoses: The differential diagnosis associated with the presentation includes As above Admission/Observation Consideration of admission/observation: Escalation of care including admission/observation considered Lab Data [facility] Lab Attestation statement: I reviewed the patient's lab results. 12/21/23 12:33 12/21/23 12:33 Labs: Lab Results 12/21/23 12/21/23 Range/Units 12:33 19:08 WBC 11.5 H (4.8-10.8) X10*3/uL RBC 4.95 (4.20-5.50) X10*6/uL Hgb 13.4 (12.0-16.0) g/dl Hct 39.8 (37.0-47.0) % MCV 80.4 (80.0-98.0) fL MCH 27.1 (27.0-33.0) pg MCHC 33.7 (31.0-35.0) g/dl RDW 13.1 (11.0-16.0) % Plt Count 414 H (160-400) X10*3/uL MPV 9.1 L (9.4-12.3) fL Immature Gran % (Auto) 0.3 (0.0-0.4) % Neut % (Auto) 76.2 H (45-73) % Lymph % (Auto) 16.6 L (20-40) % [place] % (Auto) 4.8 (2-11) % Eos % (Auto) 1.7 (0-4) % Baso % (Auto) 0.4 (0-2) % Lymph # (Auto) 1.9 (1.2-4.9) X10*3/uL [place] # (Auto) 0.6 (0.1-1.2) X10*3/uL Eos # (Auto) 0.2 (0.0-0.4) X10*3/uL Baso # (Auto) 0.1 (0.0-0.2) X10*3/uL Abs Immat Gran (auto) 0.04 H (0.00-0.03) X10*3/uL Absolute Neuts (auto) 8.8 H (2.0-8.3) x10*3/uL Absolute Nucleated RBC 0.000 (0.0-0.012) X10*3/uL Nucleated RBC % (auto) 0.0 (0.0-0.2) /100WBC Sodium 139 (135-145) mmol/L Potassium 4.2 (3.3-5.1) mmol/L Chloride 106 (96-108) mmol/L Carbon Dioxide 27 (22-29) mmol/L Anion Gap 10 L (12-20) BUN 5 L (9-16) mg/dL Creatinine 0.73 (0.5-1.4) mg/dL Estim Creat Clear Calc 93.6 Estimated GFR > 60 Random Glucose 96 (60-115) mg/dL Calcium 9.5 (8.4-10.2) mg/dL Magnesium 2.2 (1.6-2.6) mg/dL Total Bilirubin 0.4 (0.0-1.0) mg/dL AST 18 (5-31) U/L ALT 14 (0-31) U/L Alkaline Phosphatase 115 (39-117) U/L Troponin I High Sens < 2.7 (<3.5-17.0) ng/L Total Protein 8.3 H (6.5-8.0) g/dL Albumin 4.3 (3.5-5.0) g/dL Lipase 16 (8-78) U/L Beta HCG, Quant < 2 mIU/mL Urine Color Yellow Urine Appearance Clear Urine pH 7.0 (5.0-9.0) Ur Specific [place] 1.010 (1.005-1.025) Urine Protein Negative (Neg-Trace) mg/dL Urine Glucose (UA) Negative (Negative) mg/dL Urine Ketones 40 (Negative) mg/dL Urine Blood Negative (Negative) Urine Nitrite Negative (Negative) Ur Leukocyte Esterase Trace H (Negative) Urine RBC 0-2 (0-2) /HPF Urine WBC 6-10 H (0-5) /HPF Ur Squamous Epith Cells 6-10 (0-2) /HPF Urine Bacteria Trace (None Seen) Hyaline Casts 0-2 (0-2) /LPF Urine Test NEGATIVE (NEGATIVE) Influenza Type A (PCR) NEGATIVE (Negative) Influenza Type B (PCR) NEGATIVE (Negative) RSV RNA Qual (PCR) NEGATIVE (Negative) SARS-CoV-2 RNA (RT-PCR) NEGATIVE (Negative) Independent Interpretation I performed an independent interpretation of an: EKG and CT Scan Radiology Impression Discussion of test interpretation with radiology: I have reviewed the radiologist's reading. External Record Review External record reviewed: Inpatient record, Office record, Outpatient record, Prior outpatient labs, Prior outpatient radiology, Primary care record and Outside ED record Tests considered The following testing was considered but not selected: As above Discharge Plan Discharge Clinical Impression: Lightheadedness, Dizziness, Nausea, Arteriovenous malformation of brain Patient Disposition: Home, Self-Care Additional Instructions: As discussed, it is less likely that your headache is due to the incidental finding of the AVM in your brain. Your headache improved with the use of Fioricet, prescription for this has been sent to your pharmacy. It is important that you follow-up with your primary care doctor, and discuss referrals to neurosurgeon for further evaluation and treatment. At this time there is no evidence of an aneurysm associated with this AVM which is very reassuring, however such as with aneurysms they are at risk for bleeding. If you develop new or worsening headache, dizziness, lightheadedness, confusion, seizure-like activity, passing out you should be re-evaluated. CT/CT angio head neck IMPRESSION: 1. 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 Ectatic venous structures in this region measure up to 0.4 cm in diameter. 2. No evidence of acute intracranial hemorrhage or edematous territorial infarction. 3. CTA of the head and neck without proximal occlusion or flow-limiting stenosis. Prescriptions: New abyeforeqj-tiumxfquoidsx-rqlb [Fioricet] 50-300-40 mg capsule 1 cap PO Q6H PRN (Reason: pain) Qty: 10 0RF ondansetron 4 mg tablet,disintegrating 4 mg PO Q8H PRN (Reason: nausea and vomiting) Qty: 10 0RF No Action citalopram [Celexa] 10 mg tablet 10 mg PO DAILY pantoprazole 40 mg tablet,delayed release (DR/EC) 40 mg PO QAM Referrals: Didi Hernández MD [Primary Care Provider] - Print Language: Czech
--- NOTE | 2023-12-21 18:56 | ECG_ITS ---
Test Reason : DIZZINESS Blood Pressure : / mmHG Vent. Rate : 077 BPM Atrial Rate : 077 BPM P-R Int : 148 ms QRS Dur : 078 ms QT Int : 380 ms P-R-T Axes : 050 051 010 degrees QTc Int : 430 ms Normal sinus rhythm Normal ECG No previous ECGs available Referred By: Makayla Jules Electronically Signed By:FLAVIO HOPSON
[2023-12-21 19:05] LABS: Troponin-I High Sensitivity < 2.7 ng/L (<3.5-17.0)
[2023-12-21] MEDS: Butalb/Acetamin/Caff 50/325/40 TABLET 1 TAB PO (19:12)
[2023-12-21 19:24] LABS: Appearance Urine Clear; Color Urine Yellow; Glucose Urine UA Negative (Negative); Leukocyte Esterase Urine Trace (Negative); Nitrite Urine Negative (Negative); UMIC TRIGGER UACC YES; Urine Blood Negative (Negative); Urine Ketones 40 mg/dL (Negative); Urine Protein Negative (Neg-Trace)
[2023-12-21 19:26] LABS: Bacteria Urine Trace (None Seen); Hyaline Casts Urine 0-2 /LPF (0-2); RBC Urine 0-2 /HPF (0-2); UACC Culture Trigger YES; UPreg QC Valid YES; Urine Pregnancy NEGATIVE (NEGATIVE)
[2023-12-21 20:16] LABS: Influenza A PCR NEGATIVE (Negative); Influenza B PCR NEGATIVE (Negative); Resp Syncy Virus RNA Qual PCR NEGATIVE (Negative); SARS COV2 PCR INHOUSE NEGATIVE (Negative)
[2023-12-21] MEDS: 0.9 % Sodium Chloride 1,000 ML 999 ML IV (20:37)
[2023-12-21] MEDS: iohexoL 350 MG/ML 100 ML INFUS..BTL 70 ML IV (21:18)
[2023-12-21 22:27] VITALS: BP 117/66; PULSE 82; RESP 12; TEMP 36.8; O2SAT 99
[2023-12-21 23:56] VITALS: BP 110/59; PULSE 76; RESP 16; TEMP 36.9; O2SAT 99
== END 2023-12-22 00:03 | disposition home or self-care (01) ==
PROVIDERS: Physician Assistant; Physician Assistant Medical; Emergency Provider Emergency Medicine Emergency Medical Services; PCP Student in an Organized Health Care Education/Training Program
DX: R42 Dizziness and giddiness (principal); R11.2 Nausea with vomiting, unspecified; H53.8 Other visual disturbances; F41.1 Generalized anxiety disorder; F43.0 Acute stress reaction; Q28.2 Arteriovenous malformation of cerebral vessels; R10.2 Pelvic and perineal pain; R51.9 Headache, unspecified; Z79.899 Other long term (current) drug therapy; Z03.818 Encounter for observation for suspected exposure to other biological agents ruled out
CPT/HCPCS: 0241U; 36415; 70450; 70496; 70498; 80053; 81001; 81025; 83690; 83735; 84484; 84702; 85025; 87086; 93005; 96360; 96361; 99284; Q9967

== ENCOUNTER 2024-01-27 09:19 | Outpatient (AMB) | payer MEDICAID, SELFPAY ==
--- NOTE | 2024-01-27 09:35 | A.OFFVIS_ITS ---
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 Present Allergies No Known Allergies Allergy (Unknown, Verified 01/27/24 09:36) Is last menstrual period known: Yes Last menstrual period: 12/27/23 HPI Comments Details: Presenting for EMB [facility] Medical History GERD (gastroesophageal reflux disease) Depression Anxiety Surgical History Hx of tubal ligation Family History Mother HTN (hypertension) Stroke (cerebrum) Father Heart attack Other Diabetes Social History Household Members: Children Housing: House Alcohol intake: current Alcohol intake frequency: holidays/special occasions only Patient Tobacco Use Status: Never used Tobacco Current occupational status: employed 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 Sexual orientation: Straight/Heterosexual Gender identity: Female Female Reproductive History Menstrual Date of last menstrual period: 12/27/23 Review of Systems Const All systems reviewed & are unremarkable except as noted in HPI and below Reports as per HPI and Reports no additional complaints GI Reports no additional complaints Reports no additional complaints Office Procedures Endometrial Biopsy Details: The patient was counseled regarding the indication and benefits of endometrial sampling to rule out endometrial pathology including not limited to endometrial hyperplasia or endometrial cancer and others; The alternatives (Either do nothing vs. hysteroscopy D&C) & the risks were discussed with the patient including but not limited: pain, uterine perforation, bleeding, infection, possible injury to bladder, bowel, ureter, possible need for blood transfusion with all its possible risks. The patient verbalized understanding all questions answered and signed consent. Urine test done in the office was negative The patient was placed into the dorsal lithotomy position; a speculum was inserted in the vagina. Using aseptic technique for the procedure, the cervix was cleansed with Betadine. The anterior lip of the cervix was grasped with a single tooth tenaculum. The uterus was sounded to 7 cm with a 4 mm Pipelle was used. Tissues samples were obtained and placed in formalin, in a patient labeled container and sent to the pathology department. At the end of the procedure, there was minimal bleeding noted The patient tolerated the procedure well and was discharged in good condition with the following instructions: Nothing in the vagina until the bleeding stops. No sex until the bleeding stops, to call if any of the following occurs: fever (>100.4), flu-like symptoms, abdominal pain, heavy bleeding, four smelling vaginal discharge. The patient was instructed to schedule a Follow up appointment in 2 weeks to discuss pathology results of the biopsy and treatment options. This note was generated with a voice recognition program. Some errors may have been overlooked during the review of this note. Sometimes these errors may affect the content or meaning of a given sentence. [id number] Biopsy Results AMB Test Urine AMB Test Urine Negative Last Edit by BUBBA Matt on 01/27/24 09:44 Assessment & Plan Assessment & Plan (1) Abnormal uterine bleeding: Code(s): N93.9 - Abnormal uterine and vaginal bleeding, unspecified Category: Medical Plan: EMB done, see procedure Orders: Orders AMB HCG Urine Test Today N93.9 - Abnormal uterine and vaginal b leeding, unspecified, Z32.02 - Encounter for test, result negative AMB Endometrial Biopsy Today N93.9 - Abnormal uterine and vaginal bleeding, unspecified Coding Level of Care Code Procedure Only Diagnoses Abnormal uterine bleeding N93.9 CPT Codes Endometrial Biopsy - CPT: 71436-Dgwnykhypah Biopsy ([id number])
== END 2024-01-27 10:10 | disposition home or self-care (01) ==
LOC: HO.HWS 09:19
PROVIDERS: PCP Student in an Organized Health Care Education/Training Program; Visit Provider Obstetrics & Gynecology
DX: N93.9 Abnormal uterine and vaginal bleeding, unspecified (principal); Z32.02 Encounter for pregnancy test, result negative
CPT/HCPCS: 58100

== ENCOUNTER 2024-01-27 09:19 | Outpatient (REF) | payer MEDICAID, SELFPAY | END 2024-01-27 09:20 | disposition home or self-care (01) | LOC: HO.LNP 09:19 | PROVIDERS: PCP Student in an Organized Health Care Education/Training Program; Visit Provider Obstetrics & Gynecology | DX: N93.9 Abnormal uterine and vaginal bleeding, unspecified (principal); Z32.02 Encounter for pregnancy test, result negative | CPT/HCPCS: 58100; 81025; 88305 ==

== ENCOUNTER 2024-04-03 14:24 | Outpatient (AMB) | payer MEDICAID, SELFPAY ==
--- NOTE | 2024-04-03 14:24 | MHC.OFFVIS ---
Intake Visit Reasons: EMB results Allergies No Known Allergies Allergy (Unknown, Verified 01/27/24 09:36) HPI Comments Details: The patient scheduled a telehealth visit for follow-up to discuss the results of her abnormal uterine bleeding workup and options of treatment. The following workup was done.: H&H= 39.8/13.4 TSH, prolactin, hCG, GC and chlamydia were negative. Endometrial biopsy pathology showed the following: Benign mid-late secretory endometrium; no atypia or carcinoma Co testing was done was negative. Mammogram was negative. Pelvic ultrasound showed the following: Uterus anteverted and measures 8.3 x 5.7 x 6.7 cm. 3.8 x 3.0 x 3.9 cm hypoechoic lesion characteristic of a fibroid previously measured 3.8 x 3.4 x 3.9 cm. Endometrial thickness of 9 mm. The 3.9 cm fibroid abuts the endometrium. Limited visualization of the endometrium due to the fibroid as well as body habitus. No significant free fluid. Right ovary poorly visualized and seen only on transabdominal ultrasound images. Right ovary measures 2.4 x 1.1 x 2.3 cm, volume 3.2 mL. Left ovary seen only on limited transabdominal ultrasound images and measures 3.4 x 1.9 x 3.9 cm, volume 13.2 mL. Left ovarian 1.7 x 1.5 x 1.7 cm simple cyst, likely physiologic. There is no specific indication for additional imaging at this time [facility] Medical History GERD (gastroesophageal reflux disease) Depression Anxiety Surgical History Hx of tubal ligation Family History Mother HTN (hypertension) Stroke (cerebrum) Father Heart attack Other Diabetes Social History Household Members: Children Housing: House Alcohol intake: current Alcohol intake frequency: holidays/special occasions only Patient Tobacco Use Status: Never used Tobacco Current occupational status: employed Current occupation: [employer] Sexual orientation: Straight/Heterosexual Gender identity: Female Telehealth Telehealth Telehealth Platform: [facility] Location of provider rendering services: practice address Location of patient: address on file Patient Identification confirmed using: Name, : Yes Telehealth method: video Patient verbally consented to treatment: Yes Patient verbally consented to billing insurance company: Yes Patient informed of any privacy concerns related to visit: Yes Assessment & Plan Assessment & Plan (1) Abnormal uterine bleeding: Code(s): N93.9 - Abnormal uterine and vaginal bleeding, unspecified Category: Medical Plan: Discussed with the patient the results of the work up done and options of treatment including Lysteda, BCP's, Mirena IUD, endometrial ablation and hysterectomy. All pros, cons, risks and benefits if each option was discussed with the patient and the patient decided to think about it and get back to us. All questions answered the patient verbalized understanding. (2) Uterine myoma: Code(s): D25.9 - Leiomyoma of uterus, unspecified Category: Medical Plan: Discussed with the patient the findings on pelvic ultrasound & the risk of myosarcoma; discussed with the patient the options of treatment including expectant management versus hysterectomy; the pros and cons, risks benefits of each approach were discussed with the patient including the fact that in cases of myosarcoma, surgical treatment can lead to early diagnosis and positively affects the prognosis; after further discussion, the patient decided to proceed with expectant management. Will repeat pelvic ultrasound periodically. Instructions given to patient to call in case any of the following occurs: pressure symptoms, abnormal uterine bleeding, pelvic pain; and to schedule a six-months pelvic ultrasound (order placed) and a follow-up appointment . All questions answered, the patient verbalized understanding and agreed with the plan . I spent a total of 20 minutes reviewing the chart, talking to the patient via video and documenting in the medical record. Orders: Orders US pelvic and transvaginal 6 Months D25.9 - Leiomyoma of uterus, unspecified Coding Level of Care Code Tele Est Pt Level 3 (93806) Diagnoses Abnormal uterine bleeding N93.9 Uterine myoma D25.9
== END 2024-04-03 15:43 | disposition home or self-care (01) ==
LOC: HO.HWS 14:24
PROVIDERS: PCP Student in an Organized Health Care Education/Training Program; Visit Provider Obstetrics & Gynecology
DX: N93.9 Abnormal uterine and vaginal bleeding, unspecified (principal); D25.9 Leiomyoma of uterus, unspecified
CPT/HCPCS: 99213

== ENCOUNTER 2024-09-20 15:43 | Outpatient (REF) | payer MEDICAID, SELFPAY ==
--- NOTE | ~2024-09-20 | XR_ITS ---
EXAMINATION: XR CHEST CLINICAL INFORMATION: Cough COMPARISON: None available. TECHNIQUE: 2 views of the chest were obtained. FINDINGS: Heart and mediastinal silhouette is within normal limits. Lungs are clear and well expanded. There is no sign of pleural effusion. Bony structures are unremarkable. XR/XR chest 2V IMPRESSION: No acute disease. Electronically signed by: Heron Almaraz MD 09/20/2024 05:47 PM EDT
[2024-09-20 16:55] LABS: MANUAL DIFF FLAG NO
[2024-09-20 17:10] LABS: Basophils Percent Auto 0.3 % (0-2); Eosinophils Absolute Auto 0.7 X10*3/uL (0.0-0.4); Eosinophils Percent Auto 6.2 % (0-4); Hematocrit 38.2 % (37.0-47.0); Hemoglobin 12.7 g/dl (12.0-16.0); Imm Gran Abs Auto 0.04 X10*3/uL (0.00-0.03); Imm Gran Pct Auto 0.4 % (0.0-0.4); Lymphocytes Percent Auto 26.1 % (20-40); Mean Corpuscular HGB Conc 33.2 g/dl (31.0-35.0); Mean Corpuscular Hemoglobin 26.8 pg (27.0-33.0); Mean Corpuscular Volume 80.6 fL (80.0-98.0); Mean Platelet Volume 9.3 fL (9.4-12.3); Monocytes Absolute Auto 0.7 X10*3/uL (0.1-1.2); Neutrophils Absolute Auto 6.9 x10*3/uL (2.0-8.3); Platelet Count 393 X10*3/uL (160-400); Red Blood Count 4.74 X10*6/uL (4.20-5.50); Red Cell Distribution Width 13.1 % (11.0-16.0); White Blood Count 11.3 X10*3/uL (4.8-10.8)
[2024-09-20 17:15] LABS: Estimated Average Glucose 103 mg/dL; Hemoglobin A1C 111.1177 umol/L; Hemoglobin A1c % 5.2 % (<6.0); Total Hemoglobin (HGBA1C) 3314.4176 umol/L
[2024-09-20 17:31] LABS: C Reactive Protein 0.26 mg/dL (< or = 0.50); Cholesterol 189 mg/dL (<200); HDL Cholesterol 47 mg/dL (>40); LDL Cholesterol Calculated 120 mg/dL (<100); Triglycerides 112 mg/dL (<150)
[2024-09-20 17:49] LABS: Erythrocyte Sedimentation Rate 23 MM/HR (0-20)
--- OUTSIDE RECORDS SUMMARY | 2024-09-20 18:28 | XMS_ITS | Clinical Summary ---
Author Organization [employer] Address [address] [place] [address] 7 [place] [address] Care Team Providers Care Science Analyst Name Role Phone Didi Hernández MD Primary Care Provider Allergies Active Allergy Reactions Criticality Noted Date Comments Penicillin V Hives 04/15/2010 Medications * This document contains information received from the source organization and may not represent a complete record from that organization. Drospirenone (Slynd) 4 MG tablet take 1 tablet by oral route every day at the same time each day 28 tablet 11 05/06/19 24 Active famotidine (Pepcid) 40 MG tablet Take 0.5 tablets (20 mg) by mouth at bedtime. 90 tablet 05/10/19 24 Active citalopram (CeleXA) 10 MG tabletIndication s:JOSETTE (generalized anxiety disorder) Take 1 tablet (10 mg) by mouth Once per day. 90 tablet 1 04/28/19 25 Active melatonin 5 MG tabletIndication s:Sleep difficulties Take 1-2 tablets (5-10 mg) by mouth if needed at bedtime (sleep). 90 tablet 3 04/28/19 25 Active ibuprofen 600 MG tablet TAKE 1 TABLET BY MOUTH IF NEEDED IN THE MORNING, NOON, AND AT BEDTIME FOR PAIN OR FEVER FOR 10 DAYS 30 tablet 06/28/19 25 Active pantoprazole (ProtoNix) 40 MG EC tablet TAKE 1 TABLET (40 MG) BY MOUTH BEFORE BREAKFAST. DO NOT CRUSH, CHEW, OR SPLIT. 90 tablet 07/21/19 25 Active fluticasone (Flonase) 50 MCG/ACT nasal sprayIndications :Allergic rhinitis, unspecified seasonality, unspecified trigger SPRAY 1 TO 2 SPRAYS INTO EACH NOSTRIL ONCE PER DAY. SHAKE GENTLY. BEFORE FIRST USE, PRIME PUMP. AFTER USE, CLEAN TIP AND REPLACE CAP. 48 mL 07/26/19 Active albuterol 108 (90 Base) MCG/ACT inhalerIndicatio ns:Acute cough Inhale 2 puffs every 4 (four) hours if needed for wheezing. 18 g 09/14/19 25 026 Active azithromycin (Zithromax) 500 MG tabletIndication s:Acute cough 500 mg on day 1, 250 mg day 2-5 3 tablet 09/14/19 25 Active predniSONE (Deltasone) 20 MG tabletIndication s:Acute cough Take 2 tablets (40 mg) by mouth Once per day for 5 days. 10 tablet 09/21/19 25 025 Active benzonatate (Tessalon Perles) 100 MG capsuleIndicatio ns:Acute cough Take 1 capsule (100 mg) by mouth if needed in the morning, at noon, and at bedtime for cough for up to 7 days. Do not crush or chew. 20 capsule 09/21/19 25 025 Active benzonatate (Tessalon Perles) 100 MG capsuleIndicatio ns:Acute cough Take 1 capsule (100 mg) by mouth if needed in the morning, at noon, and at bedtime for cough for up to 7 days. Do not crush or chew. 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 Ectatic venous structures in this region measure up to 0.4 cm in diameter. 2. No evidence of acute intracranial hemorrhage or edematous territorial infarction. Referral to Neurosurgery placed 04/30/24 Abnormal uterine bleeding 04/28/2024 Overview (04/28/2024): Following with [facility] COMMUNITY DIRECTOR - Dr. Toribio EMB completed Dec 2023. Path: Benign mid-late secretory endometrium; no atypia or carcinoma. Assessment & Plan (04/30/2024 2:10 PM EST): -Cont to monitor bleeding pattern and f/up with specialist PRN Healthcare maintenance 04/28/2024 Overview (04/30/2024): Pap: 08/05/23 NILM, HPV neg (Dr. Toribio) Mammo: BIRADS 1 09/08/23 Colonoscopy: routine screening starting at 45 y/o OPH: Following with [facility] (next May 15, 2024) Last comprehensive exam: 04/28/24 Dental: referral to [facility] Dental 04/28/24 Dysphagia 05/10/2023 Overview (04/30/2024): Barium swallow completed June 2023 1. Felinization of the mid esophageal mucosa. This is a benign finding that is typically associated with gastroesophageal reflux. 2. Mild cricopharyngeal achalasia. 3. Small type I hiatal hernia. 4. Mild to moderate gastroesophageal reflux. 5. Multiple small well-circumscribed filling defects in the fundus and body the stomach that likely represent hyperplastic polyps. There is mild thickening of the areae gastricae, particularly in the distal body and antrum. Findings likely represent gastritis. Recommend correlation with EGD. Assessment & Plan (04/30/2024 2:10 PM EST): - Avoiding foods the trigger/worsen symptoms - Upcoming consult Apr 2024 with GI Assessment & Plan (05/10/2023 3:16 PM EST): Dysphagia to solids, will order Barium swallow test and prescribed her Protonix and Pepcid for acid reflux. I have also scheduled her a follow-up appointment with her provider in a month. Future Appointments Date Time Provider Department Center 06/09/2023 9:15 AM Didi Hernández MD [facility] JOSETTE (generalized anxiety disorder) 01/18/2023 Assessment & Plan (04/30/2024 2:12 PM EST): - : following with [facility] - Re-start lexapro 10mg daily. Reviewed med use and SE - Follow up precautions Assessment & Plan (01/18/2023 9:46 AM EDT): Assessment: Patient with depressive sxs such as anhedonia, depressed, sleep disturbance, crying spells, isolation, fatigue, poor appetite, low self-esteem, diminished ability to concentrate at times, and restlessness. Also reported anxiety sxs such as anxiousness, persistent worry, diminished ability to relax, irritability at times, fearfulness, palpitations, and sweat hands. Factors contributing to her symptoms are relationship stress with partner, adjusting to a new job. Patient will benefit from Ind. Therapy. At this time Nadeem Toribio meets criteria for Visit Diagnoses: Problem List Items Addressed This Visit Other JOSETTE (generalized anxiety disorder) Current moderate episode of major depressive disorder without prior episode (CMS/HCC) Patient ready to address current needs Yes Strengths include willing to advocate for herself PLAN: 1. Follow up with [facility]: Recommended for follow-up: 02/01/23 at 10am in person 2. Patient goal is to improve mentla health 3. Behavioral Recommendations a. Ind. Therapy, referral will be submitted b. [facility] follow up c. Use of coping skills provided Current moderate episode of major depressive disorder without prior episode 01/18/2023 Assessment & Plan (02/01/2023 12:09 PM EST): Assessment: Patient presented with anxiety and depressive sxs. Symptoms present in the context of stress relationship with partner and low self-esteem. Patient referred to [facility] in [place], already received call that she is on waiting list. At this time Nadeem Toribio meets criteria for Visit Diagnoses: Problem List Items Addressed This Visit Other JOSETTE (generalized anxiety disorder) Current moderate episode of major depressive disorder without prior episode (CMS/HCC) Patient ready to address current needs Yes Strengths include willing to advocate for herself PLAN: 1. Follow up with [facility] [place]: Recommended for follow-up: 02/22/23 at 10am in person 2. Patient goal is to improve mentla health 3. Behavioral Recommendations a. Ind. Therapy, referral submitted to [facility], patient on waiting list b. IB follow up c. Use of coping skills provided and increase self-care practice Encounters Date Type Department Care Team Description 09/20/2024 3:00 PM EDT Office Visit [facility] [address] [place] [phone] Pierre Leone MD Acute cough (Primary Dx); Acute cough 09/20/2024 Travel 09/18/2024 Telephone [facility] [address] [place] [phone] Didi Hernández MD Letter for School/Work 09/13/2024 3:40 PM EDT Office Visit [facility] [address] [place] [phone] Pierre Leone MD Acute cough (Primary Dx) 09/13/2024 Travel 09/13/2024 Telephone [facility] [address] [place] [phone] Didi Hernández MD Nurse Triage 09/12/[address] [phone] Didi Hernández MD Nurse Triage 07/24/2024 Refill [facility] [address] [place] [address] Karla Chanel FNP Allergic rhinitis, unspecified seasonality, unspecified trigger 07/19/2024 Refill [facility] [address] [place] [phone] Didi Hernández MD 06/26/2024 Refill [facility] [address] [place] [phone] Didi Hernández MD from Last 3 Months Immunizations Immunization Administration Dates Next Due DTP 05/31/1987, 4,10/21/1982,1981,1981 Hep B, adult 04/28/2024,09/24/2023 Influenza injectable quadriv alent preservative free 02/02/2023 Influenza, Split (incl. baldomero fied surface antigen) 02/02/2012 Influenza, seasonal, injecta ble, preservative free 04/28/2024 MMR 01/28/1994,06/16/1983 OPV, Trivalent 05/31/1987, 4,10/21/1982,1981 Tdap 09/21/2017 Social History Tobacco Use Types Packs/Day Years Used Date Smoking Tobacco: Never Passive Smoke Exposure: Never Smokeless Tobacco: Never Tobacco Cessation:Counseling Given: Not Answered Alcohol Use Standard Drinks/Week Comments Never 0 (1 standard drink = 0.6 oz pur e alcohol) Depression Answer Date Recorded Patient Health Questionnaire-9 Score 7 04/30/2024 Patient Health Questionnaire-9 Score 7 04/30/2024 Last PHQ-9: Questionnaire Data Not on file 0 04/30/2024 Housing Stability Answer Date Recorded What is your housing situation today? I have mayra burnette 04/21/[address] you li ve. Do you have problems with any of the following? None of the above 04/21/2024 Food Insecurity Answer Date Recorded Within the past 12 months, y ou worried that your food would run out before you got money to buy more: Never True 04/21/2024 Within the past 12 months,th e food you bought just didn't last and you didn't have enough money to get more: Never True Transportation Answer Date Recorded In the past 12 months, has l ack of transportation kept you from medical appts, meetings, work or from getting things needed for daily living? No 04/21/2024 Utilities Answer Date Recorded In the past 12 months, has t he electric, gas, oil or water company threatened to shut off services in your home? No 04/21/2024 Depression Answer Date Recorded Patient Health Questionnaire-2 Score 2 04/30/2024 Internet Access Answer Date Recorded Internet Access Q1 Yes 04/21/2024 Internet Access Q2 Not on file 04/21/2024 Comments No Sex and Gender Information Value Date Recorded Sex Assigned at Female 01/26/2022 10:14 AM EDT Legal Sex Female 10:14 AM EDT Gender Identity Female 01/26/2022 10:14 AM EDT Sexual Orientation Straight 01/26/2022 10 :14 AM EDT Last Filed Vital Signs Vital Sign Reading Time Taken Comments Blood Pressure 128/81 09/20/2024 2:54 PM EDT Pulse 97 09/20/2024 2:54 PM EDT Temperature 37.6 C (99.7 F) 09/20/2024 2:54 PM EDT Respiratory Rate 20 09/20/2024 2:54 PM EDT Oxygen Saturation 98% 09/20/2024 2:54 PM EDT Inhaled Oxygen Concentration - - Weight 69.6 kg (153 lb 8 oz) 04/28/2024 9:44 AM EST Height 156 cm (5' 1.43 ) 04/28/2024 9:44 AM EST Body Mass Index 28.6 04/28/2024 9:44 AM EST Plan of Treatment Health Maintenance Due Date Last Done Comments Disability Screening 1980 Hepatitis B Vaccines (3 of 3 - 19+ 3-dose series) 06/23/2024 04/28/2024, 09/24/2023 Mammogram 09/07/2024 09/08/2023 Alcohol/Substance Use Screening 04/28/2025 04/28/2024 SDOH Screening 04/28/2025 04/28/2024 COVID-19 Vaccine ( season) 2025 03/18/2021, 09/10/2020, 08/13/2020 Postponed from 11/28/2023 (Patient Refused) Depression Screening 04/30/2025 04/30/2024, 04/30/19 Family Planning (PISQ) 04/30/2025 04/30/2024 Tobacco Screening 09/20/2025 09/20/2024 DTaP/Tdap/Td Vaccines (7 - Td or Tdap) 09/22/2027 09/21/2017, 05/31/1987, 06/16/1983, Additional history exists Cervical Cancer Screening 08/04/2028 HPV/Cotest 08/04/2028 08/12/2021 Pap Smear 08/04/2028 08/05/2023, 07/27, 08/12/2021 Zoster Vaccines (1 of 2) 06/15/2031 RSV Patients and Patients Aged 60 years or older (1 - 1-dose 75+ series) 2056 IPV Vaccines Completed 05/31/1987, 05/28, 10/21/1982, Additional history exists HIV Screening Completed 09/10/2023 Hepatitis C Screening Completed 09/10/2023, 023 Influenza Vaccine Completed 04/28/2024, , 02/02/2012 HIB Vaccines Aged Out No longer eligi ble based on patient's age to complete this topic HPV Vaccines Aged Out No longer eligi ble based on patient's age to complete this topic Hepatitis A Vaccines Aged Out No long er eligible based on patient's age to complete this topic Meningococcal B Vaccine Aged Out No l onger eligible based on patient's age to complete this topic Meningococcal Vaccine Aged Out No mariaa stu eligible based on patient's age to complete this topic Pneumococcal Vaccine: Pediatrics (0 to 5 Years) and At-Risk Patients (6 to 49) Years Aged Out No longer eligible based on patient's age to complete this topic RSV under 20 months Aged Out No longe r eligible based on patient's age to complete this topic Rotavirus Vaccines Aged Out No longer eligible based on patient's age to complete this topic Procedures Procedure Name Priority Date/Time Associated Diagnosis Comments C-REACTIVE PROTEIN Routine 09/20/2024 4: 53 PM EDT Acute cough SED RATE BY MODIFIED WESTERGREN Routine 09/20/2024 4:53 PM EDT Acute cough CBC WITH AUTO DIFFERENTIAL Routine 09/20/2024 4:53 PM EDT Acute cough HEMOGLOBIN A1C Routine 09/20/2024 4:53 PM EDT Healthcare maintenance LIPID PANEL, STANDARD Routine 09/20/2024 4:53 PM EDT Healthcare maintenance XR CHEST 2 VIEWS Routine 09/20/2024 3:47 PM EDT Acute cough POCT RAPID COVID ANTIGEN Routine 09/20/2024 3:37 PM EDT Acute cough POCT INFLUENZA A Routine 09/20/2024 3:36 PM EDT Acute cough POCT INFLUENZA B Routine 09/20/2024 3:35 PM EDT Acute cough HEPATITIS C AB W/REFL TO HCV RNA, QN, PCR Routine 09/10/2023 1:05 PM EDT Vaginal discharge HIV 1/2 ANTIGEN/ANTIBODY, FOURTH GENERATION W/RFL Routine 09/10/2023 1:05 PM EDT Vaginal discharge BI MAMMOGRAM SCREENING TOMOSYNTHESIS BILATERAL Routine 09/08/2023 10:35 AM EDT PAP SMEAR Routine 08/05/2023 11:03 AM EDT THINPREP IMAGING PAP AND HPV MRNA E6/E7, WITH CT/NG, TRICHOMONAS Routine 08/12/2021 3:58 PM EDT from Last 3 Months or Most Recently Relevant to Health Maintenance Results * (ABNORMAL) CBC auto differential (09/20/2024 4:53 PM EDT) White Blood Count 11.3(H) 4.8 - 10.8 X10*3/uL [facility] Red Blood Count 4.74 4.20 - 5.50 X10*6/uL [facility] Hemoglobin 12.7 12.0 - 16.0 g/dl [facility] Hematocrit 38.2 37.0 - 47.0 % [facility] Mean Corpuscular Volume 80.6 80.0 - 98.0 fL [facility] Mean Corpuscular Hemoglobin 26.8(L) 27.0 - 33.0 pg [facility] Mean Corpuscular HGB Conc 33.2 31.0 - 35.0 g/dl [facility] Red Cell Distribution Width 13.1 11.0 - 16.0 % [facility] Platelet Count 393 160 - 400 X10*3/uL [facility] Mean Platelet Volume 9.3(L) 9.4 - 12.3 fL [facility] Neutrophils Percent Auto 61.0 45 - 73 % [facility] Imm Gran Pct Auto 0.4 0.0 - 0.4 % [facility] Lymphocytes Percent Auto 26.1 20 - 40 % [facility] Monocytes Percent Auto 6.0 2 - 11 % [facility] Eosinophils Percent Auto 6.2(H) 0 - 4 % [facility] Basophils Percent Auto 0.3 0 - 2 % [facility] NRBC Pct Auto 0.0 0.0 - 0.2 /100WBC [facility] Neutrophils Absolute Auto 6.9 2.0 - 8.3 x10*3/uL [facility] Imm Gran Abs Auto 0.04(H) 0.00 - 0.03 X10*3/uL [facility] Lymphocytes Absolute Auto 3.0 1.2 - 4.9 X10*3/uL [facility] Monocytes Absolute Auto 0.7 0.1 - 1.2 X10*3/uL [facility] Eosinophils Absolute Auto 0.7(H) 0.0 - 0.4 X10*3/uL [facility] Basophils Absolute Auto 0.0 0.0 - 0.2 X10*3/uL [facility] NRBC Abs Auto 0.000 0.0 - 0.012 X10*3/uL [facility] Blood Venous blood specimen / Unknown 09/20/2024 4:53 PM EDT 09/20/2024 4:53 PM EDT us Pierre Leone MD LAB BLOOD ORDERABLES Final Result [facility] [address] [place] [phone] * (ABNORMAL) Sed Rate by Modified [place] (09/20/2024 4:53 PM EDT) Erythrocyte Sedimentation Rate 23(H) 0 - 20 MM/HR [facility] Comment:Patients with polycy themia and many hemoglobin abnormalitiesmay have depressed sed rates whereas patients with anemiamay have elevated sed rates. Blood Venous blood specimen / Unknown 09/20/2024 4:53 PM EDT 09/20/2024 4:53 PM EDT us Pierre Leone MD LAB BLOOD ORDERABLES Final Result Performing Organization Address [facility] Co de Phone Number [facility] [address] [place] [phone] * C-reactive Protein (09/20/2024 4:53 PM EDT) C Reactive Protein 0.26 < or = 0.50 mg/dL [facility] Blood Venous blood specimen / Unknown 09/20/2024 4:53 PM EDT 09/20/2024 4:53 PM EDT us Pierre Leone MD LAB BLOOD ORDERABLES Final Result Performing Organization Address [facility] Number [facility] [address] [place] [phone] * Hemoglobin A1c (09/20/2024 4:53 PM EDT) Hemoglobin A1c 5.2 <6.0 % [facility] Comment:Hemoglobin A1C Refer ence Range Adults: 4.8 - 6.0 % Non diabetic: < 6.0 % Goal: < 7.0 %Additional Action Suggested: > 8.0 %Note: Hemoglobin A1c results are invalid for patients with abnormal amounts of HbF. Blood transfusions may impact the HbA1c concentration in the patient sample. Estimated Average Glucose 103 mg/dL [facility] Comment:eAG = Estimated ave rage glucose which is %A1C expressed asaverage glucose, using the formula of the [id number] Glucose study (ADAG), Diabetes Care, Vol.31,#8,2007 Blood Venous blood specimen / Unknown 09/20/2024 4:53 PM EDT 09/20/2024 4:53 PM EDT Karla Chanel TRANSPLANT CASE MANAGER LAB BLOOD ORDERABLES Final Res ult Performing Organization Address [facility] Co de Phone Number [facility] [address] [place] [phone] * (ABNORMAL) Lipid Panel, Standard (09/20/2024 4:53 PM EDT) Triglycerides 112 <150 mg/dL [facility] Comment:Desirable Triglyceri de: less than 150 mg/dLBorderline High Triglyceride 150-199 mg/dLHigh Triglyceride: 200-499 mg/dLVery High Triglyceride: greater than or equal to 5OO mg/dL Cholesterol 189 <200 mg/dL [facility] Comment:Desirable Cholestero l: less than 200 mg/dLBorderline High Cholesterol: 200-239 mg/dLHigh Cholesterol: greater than 239 mg/dL LDL Cholesterol Calculated 120(H) <100 mg/dL [facility] Comment:Desirable LDL: less than 100 mg/dLNear Optimal/Above Optimal LDL: 110- 129 mg/dLBorderline High LDL: 130-159 mg/dLHigh LDL: 160-189 mg/dLVery High LDL: greater than or equal to 190 mg/dL HDL Cholesterol 47 >40 mg/dL [facility] Comment:Desirable HDL: great er than 40 mg/dL Note: This HDL assay may give artificially low results in patients with liver disease. Blood Venous blood specimen / Unknown 09/20/2024 4:53 PM EDT 09/20/2024 4:53 PM EDT us aKrla Chanel TRANSPLANT CASE MANAGER LAB BLOOD ORDERABLES Final Res ult [facility] [address] [place] [phone] * XR Chest 2 Views (09/20/2024 3:47 PM EDT) Anatomical Region Laterality Modality Chest Radiographic Lisa ging 09/20/2024 3:47 PM EDT Narrative 09/20/2024 5:50 PM EDT [address] [address] XRay Report Signed Patient: Nadeem Toribio MR#: [id number] 5 : 1980 Acct:[id number] Age/Sex: 44 / F ADM Date: 09/20/24 Loc: HO.XRAY Attending Dr: Pierre Leone MD Ordering Physician: Pierre Leone MD Date of Service: 09/20/24 Procedure(s): XR chest 2V Accession Number(s): [id number] cc: Pierre Leone MD; Didi Hernández MD EXAMINATION: XR CHEST CLINICAL INFORMATION: Cough COMPARISON: None available. TECHNIQUE: 2 views of the chest were obtained. FINDINGS: Heart and mediastinal silhouette is within normal limits. Lungs are clear and well expanded. There is no sign of pleural effusion. Bony structures are unremarkable. XR/XR chest 2V IMPRESSION: No acute disease. Electronically signed by: Heron Almaraz MD 09/20/2024 05:47 PM EDT RP Dictated By: Heron Almaraz MD Signed By: <Electronically signed by Heron Almaraz MD in OV> 09/20/24 1747 DD/ 1547 TD/TT: 09/20/24 1642 [employer]ed Circuit Boards Inspector: Procedure Note Donotuseinterpreter, Image - 09/20/2024 [place] [address] XRay Report Signed Patient: Nadeem ToribioMR#: [id number] 5 : 1980Acct:[id number] Age/Sex: 44 / FADM Date: 09/20/24 Loc: HOMarieXRAY Attending Dr: Pierre Leone MD Ordering Physician: Pierre Leone MD Date of Service: 09/20/24 Procedure(s): XR chest 2V Accession Number(s): [id number] cc: Pierre Leone MD; Didi Hernández MD EXAMINATION: XR CHEST CLINICAL INFORMATION: Cough COMPARISON: None available. TECHNIQUE: 2 views of the chest were obtained. FINDINGS: Heart and mediastinal silhouette is within normal limits. Lungs are clear and well expanded. There is no sign of pleural effusion. Bony structures are unremarkable. XR/XR chest 2V IMPRESSION: No acute disease. Electronically signed by: Heron Almaraz MD 09/20/2024 05:47 PM EDT RP Dictated By: Heron Almaraz MD Signed By: <Electronically signed by Heron Almaraz MD in OV> 09/20/24 1747 DD/ 1547 TD/TT: 09/20/24 1642 [employer]ed Circuit Boards Inspector: us Pierre Leone MD IMG XR PROCEDURES Final Res ult * POCT Rapid Covid-19 BinaxNOW (09/20/2024 3:37 PM EDT) [facility] Rapid COVID Ag Negative QC Media Lot # [id number] Lot# Expiration Date ,026 Comment:CONTOLS PASSED Swab 09/20/2024 3:37 PM EDT us Pierre Leone MD POINT OF CARE TEST ENTER/ED IT ORDERABLES Final Result * POCT Rapid Influenza A OSOM (09/20/2024 3:36 PM EDT) [facility] Rapid Influenza A Ag Negative Negative, Indeterminate QC Media Lot # [id number] Comment:CONTROLS PASSED Lot# Expiration Date ,025 Swab Nasopharyngeal structure / Unknown 09/20/2024 3:36 PM EDT us Pierre Leone MD POINT OF CARE TEST ENTER/ED IT ORDERABLES Final Result * POCT Rapid Influenza B OSOM (09/20/2024 3:35 PM EDT) [facility] Rapid Influenza B Ag Negative Negative, Indeterminate QC Media Lot # [id number] Comment:CONTROL PASSED Lot# Expiration Date ,025 Swab 09/20/2024 3:35 PM EDT us Pierre Leone MD POINT OF CARE TEST ENTER/ED IT ORDERABLES Final Result * Hepatitis C Antibody with Reflex to HCV, RNA, Quantitative, Real-Time PCR (09/10/2023 1:05 PM EDT) Pathologist [facility] Hepatitis C Antibody Nonreactive Nonreactive [facility] Comment:Antibodies to HCV no t detected; does not exclude early acuteHCV infection. Blood Venous blood specimen / Unknown 09/10/2023 1:05 PM EDT 09/10/2023 4:13 PM EDT Spencer Alvarez MD LAB BLOOD ORDERABLES Final Resul t Performing Organization Address [facility] Co de Phone Number [facility] [address] [place] [phone] * HIV-1/2 Antigen and Antibodies, Fourth Generation, with Reflexes (09/10/2023 1:05 PM EDT) Pathologist [facility] HIV AB/AG Nonreactive Nonreactive [facility] Comment:HIV-1 p24 Ag and/or HIV-1/HIV-2 Ab not detected.A test result that is nonreactive does not exclude thepossibility of exposure to or infection with HIV-1 and/orHIV-2. Nonreactive results in this assay for individualswith prior exposure to HIV-1 and/or HIV-2 may be due toantigen and antibody levels that are below the limit ofdetection of this assay.The [employer] in Black HIV Ag/Ab Combo assay result andsupplemental assay results should be interpreted inconjunction with the patient's clinical presentation,history and other laboratory results. If the results areinconsistent with clinical evidence, additional testing issuggested to confirm the result. Blood Venous blood specimen / Unknown 09/10/2023 1:05 PM EDT 09/10/2023 4:13 PM EDT Spencer Alvarez MD LAB BLOOD ORDERABLES Final Resul t Performing Organization Address City/[facility] Co de Phone Number [facility] [address] [place] [phone] * BI Mammogram Screening Tomosynthesis Bilateral (09/08/2023 10:35 AM EDT) Anatomical Region Laterality Modality Breast Bilateral Mammography 09/08/2023 10:3 5 AM EDT Narrative 10/08/2023 9:02 AM EDT [facility] [address] [place] [address] Mammography Report Signed Patient: Nadeem Toribio MR#: [id number] 5 : 1980 Acct:[id number] Age/Sex: 43 / F ADM Date: 09/08/23 Loc: [facility] Attending Dr: Todd Toribio MD Ordering Physician: Todd Toribio MD Results: 1Negativ e Date of Service: 09/08/23 Follow Up: 1 Year From Orig ina Mammogram Procedure(s): MM tomosynthesis screening BI Accession Number(s): [id number] cc: Didi Hernández MD; Todd Toribio MD EXAMINATION: MM SCREENING DIGITAL BREAST TOMOSYNTHESIS, BILATERAL CLINICAL INFORMATION: Screening. Asymptomatic. COMPARISON: Mammography: This is a baseline mammogram TECHNIQUE: Digital breast tomosynthesis is performed in both the craniocaudal and mediolateral oblique views along with computer-aided detection (CAD). Synthesized 2D images are generated from the tomosynthesis. FINDINGS: There are scattered areas of fibroglandular density (ACR BI-RADS breast composition Category b). There are no significant masses, abnormal calcifications, or other abnormalities. MM/MM tomosynthesis screening BI IMPRESSION: No mammographic evidence of malignancy. ASSESSMENT: BI-RADS BI-RADS 1 - Negative RECOMMENDATION: Routine annual mammography screening. 1 year F/U This examination should not preclude the clinical evaluation of a suspicious palpable abnormality. This patient's information was entered into a reminder system with a target due date for their next mammogram. Dictated By: Tana Key MD Signed By: <Electronically signed by Tana Key MD in OV> 10/08/23 0858 DD/ 1035 TD/TT: Printed Circuit Boards Inspector: Procedure Note Donotuseinterpreter, Image - 10/08/2023 [facility] [address] [place] [address] Mammography Report Signed Patient: Nadeem ToribioMR#: [id number] 5 : 1980Acct:[id number] Age/Sex: 43 / FADM Date: 09/08/23 Loc: HO.MAMMO Attending Dr: Todd Toribio MD Ordering Physician: Todd Toribio MDResults: 1Negativ e Date of Service: 09/08/23Follow Up: 1 Year From Orig inal Mammogram Procedure(s): MM tomosynthesis screening BI Accession Number(s): [id number] cc: Didi Hernández MD; Todd Toribio MD EXAMINATION: MM SCREENING DIGITAL BREAST TOMOSYNTHESIS, BILATERAL CLINICAL INFORMATION: Screening. Asymptomatic. COMPARISON: Mammography: This is a baseline mammogram TECHNIQUE: Digital breast tomosynthesis is performed in both the craniocaudal and mediolateral oblique views along with computer-aided detection (CAD). Synthesized 2D images are generated from the tomosynthesis. FINDINGS: There are scattered areas of fibroglandular density (ACR BI-RADS breast composition Category b). There are no significant masses, abnormal calcifications, or other abnormalities. MM/MM tomosynthesis screening BI IMPRESSION: No mammographic evidence of malignancy. ASSESSMENT: BI-RADS BI-RADS 1 - Negative RECOMMENDATION: Routine annual mammography screening. 1 year F/U This examination should not preclude the clinical evaluation of a suspicious palpable abnormality. This patient's information was entered into a reminder system with a target due date for their next mammogram. Dictated By: Tana Key MD Signed By: <Electronically signed by Tana Key MD in OV> 10/08/23 0858 DD/ 1035 TD/TT: Printed Circuit Boards Inspector: [facility] External Provider IMG BI PROCEDURES Final Result * Pap Smear (08/05/2023 11:03 AM EDT) 08/05/2023 11:0 3 AM EDT 08/06/2023 7:00 AM EDT [facility] - 08/24/2023 4:53 PM EDT ----- ------- Name: Nadeem Toribio Age/Sex: 43/F : 1980 Unit#: [id number] Attend Dr: Todd Toribio MD Re08/05/23 Status: DEP REF Location: [facility] Disch: ----- ------- SPEC : [id number] RECD: 08/06/23 STATUS: ARTHUR SEWELL NUM: [id number] PELON: 08/05/23-1103 [facility] DR: Todd Toribio MD ENTERED: 08/06/23 SP TYPE: Pap Smr [facility] DR: Didi Hernández MD ORDERED: Pap Smear Interpretation General Category: Negative for intraepithelial lesion/malignancy. Adequacy: Endocervical component present. Interpretation: Reactive cellular changes. Abundant acute inflamamtion. Coccobacilli consistent with shift in vaginal ho. HPV mRNA E6/E7: NOT DETECTED This assay detects E6/E7 viral messenger RNA (mRNA) from 14 high-risk HPV types (16, 18, 31, 33, 35, 39, 45, 51, 52, 56, 58, 59, 66, 68) HPV testing performed by [employer], [place], [place]. See reference laboratory portion of the EMR for entire report. Clinical Information LMP: 08/02/2023 Previous PAP test: Unknown date/findings Other history: Abnormal uterine bleeding Material Received ThinPrep-Cervical Copies To: Didi Hernández MD [address] [facility] [address] [place] [address] Todd Toribio MD [address] [place] [address] [address] [place] [address] ----- ------- Signed (signature on file) Mouna [place] 08/24/23 1653 ----- ------- END OF REPORT us Generic External Data Provider LAB CYTOLOGY TERESA TORRES Final Result [facility] [address] [place] [phone] * THINPREP TIS PAP AND HPV mRNA E6/E7, CT/NG, TRICH (08/12/2021 3:58 PM EDT) Chlamydia trachomatis RNA, TMA, Urogenital NOT DETECTED NOT DETECTED [facility] Clinical Information: ABNL BLEEDING [facility] COMMENT SEE COMMENT [facility] Comment: The analytical performance characteristics of this assay, when used to test SurePath(TM) specimens have been determined by [facility]. The modifications have not been cleared or approved by the FDA. This assay has been validated pursuant to the CLIA regulations and is used for clinical purposes. For additional information, please refer to https://education.Futurederm.Xenapto/faq/WON569 (This link is being provided for information/ educational purposes only.) COMMENT SEE COMMENT [facility] Comment: EXPLANATORY NOTE: The Pap is a screening test for cervical cancer. It is not a diagnostic test and is subject to false negative and false positive results. It is most reliable when a satisfactory sample, regularly obtained, is submitted with relevant clinical findings and history, and when the Pap result is evaluated along with historic and current clinical information. COMMENT: This Pap test has been evaluated with computer assisted technology. [facility] Postdoctoral Research Fellow: SEE COMMENT [facility] Comment: MAA, CT(ASCP) CT screening location: [place] [address] HPV nRNA E6/E7 Not Detected Not Detected [facility] Comment: Methodology: Molecular Technologist-Mediated Amplification This assay detects E6/E7 viral messenger RNA (mRNA) from 14 high-risk HPV types (16,18,31,33,35,39,45,51,52,56,58,59,66,68). The analytical performance characteristics of this assay have been determined by [employer]. The modifications have not been cleared or approved by the FDA. This assay has been validated pursuant to the CLIA regulations and is used for clinical purposes. For additional information, please refer to http://FTRANS.LeanWagon/faq/PAK133q6 (This link if provided for information/ educational purposes only.) Interpretation/Re sult: Negative for intraepithelial lesion or malignancy. [facility] LMP: 08/02/2021 [facility] Neisseria gonorrhoeae RNA, TMA, Urogenital NOT DETECTED NOT DETECTED [facility] Prev. BX: NONE GIVEN [facility] Prev. PAP: NONE GIVEN [facility] Review Postdoctoral Research Fellow: SEE COMMENT [facility] Comment: DCR, CT(ASCP) CT screening location: [place] [address] SOURCE: None given [facility] Statement Of Adequacy: SEE COMMENT [facility] Comment: Satisfactory for evaluation. Endocervical/transformation zone component present. Trichomonas vaginalis, QL, TMA, PAP Vial NOT DETECTED NOT DETECTED [facility] Comment: The analytical performance characteristics of this assay have been determined by [facility] [employer]. The modifications have not been cleared or approved by the FDA. This assay has been validated pursuant to the CLIA regulations and is used for clinical purposes. For additional information, please refer to http://education.Futurederm.Xenapto/ faq/Trichomonastma (This link is being provided for information/ educational purposes only.) 08/12/2021 3:58 PM EDT us Elizabeth Angela CNM LAB PATHOLOGY ORDERABLES Final Result [facility] [address] from Last 3 Months or Most Recently Relevant to Health Maintenance Insurance Care Teams Science Analyst Relationship Specialty Start Date End Date Didi Hernández MD [address] [place] [phone] PCP - General Family Medicine 03/16/13
[2024-09-21 07:54] LABS: HIV AB/AG Nonreactive (Nonreactive); HIV Num 1 0.06 S/CO (0.00-0.99)
[2024-09-21 13:48] LABS: HCV Log PCR <1.18 NOT DETECTED Log IU/mL (NOT DETECTED); HepC Viral Load <15 NOT DETECTED IU/mL (NOT DETECTED)
[2024-09-22 09:58] LABS: RPR Rapid Plasma Reagin NON-REACTIVE (NON-REACTIVE)
== END 2024-09-20 15:44 | disposition home or self-care (01) ==
LOC: HO.XRAY 15:43
PROVIDERS: Registered Nurse; PCP Student in an Organized Health Care Education/Training Program; Visit Provider Internal Medicine
DX: R05.1 Acute cough (principal); Z00.00 Encounter for general adult medical examination without abnormal findings
CPT/HCPCS: 36415; 71046; 80061; 83036; 85025; 85652; 86140; 86592; 87389; 87522

== ENCOUNTER → 2024-09-20 15:48 | Outpatient (BNV) | payer MEDICAID, SELFPAY | PROVIDERS: PCP Student in an Organized Health Care Education/Training Program; Visit Provider Radiology Diagnostic Radiology | DX: R05.9 Cough, unspecified (principal) | CPT/HCPCS: 71046 ==

== ENCOUNTER 2024-09-26 15:08 | Outpatient (REF) | payer MEDICAID, SELFPAY ==
--- NOTE | ~2024-09-26 | US_ITS ---
CLINICAL HISTORY: D25.9 - Leiomyoma of uterus, unspecified US pelvis transabdominal and transvaginal with color Doppler Comparison: Prior relevant studies were not available for comparison at the time of interpretation Findings: Transabdominal scanning performed for overall anatomy. Transvaginal scanning performed for additional detail. LMP: Early August 2024 Anteverted uterus, heterogeneous in echotexture measuring 10.3 x 6.3 x 7.0 cm. Normal endometrium, measuring 7.0 mm thickness Uterine fibroids: Left superior fundal intramural 4.4 x 3.6 x 4.2 cm documented previously at 3.8 x 3.0 x 3.9 cm Left fundal intramural 1.6 x 1.4 x 1.4 cm not documented previously The right ovary measures, 2.2 x 1.0 x 1.8 cm. Normal sonographic appearance right ovary. The left ovary measures, 3.6 x 1.6 x 2.1 cm. Normal sonographic appearance left ovary. No adnexal masses or fluid collections. No free fluid. Impression: 1. Leiomyomatous uterus. 2. Normal thickness endometrium. 3. Normal ovaries/adnexa This document has been electronically signed by: Donte Henley MD on 09/28/2024 11:21:48
--- OUTSIDE RECORDS SUMMARY | 2024-09-26 16:01 | XMS_ITS | Encounter Summary ---
Author Organization [employer] Address [address] [place] [address] [address] [place] [address] Care Team Providers Care Kennel Hand Name Role Phone Didi Hernández MD Primary Care Provider Reason for Visit * Reason Onset Date Comments Results 09/21/2024 Encounter Details Date Type Department Care Team ([facility] st Contact Info) Description 09/21/2024 Results Follow-Up [facility] [address] [facility] [place] [address] Pierre Leone MD [address] [place] [address] Hemoglobin A1c, HIV-1/2 Antigen and Antibodies, Fourth Generation, with Reflexes, Hepatitis C Viral RNA, Quantitative, Real-Time PCR, Additional followed-up results: 2 Social History Tobacco Use Types Packs/Day Years Used Date Smoking Tobacco: Never Passive Smoke Exposure: Never Smokeless Tobacco: Never Alcohol Use Standard Drinks/Week Comments Never 0 (1 standard drink = 0.6 oz pur e alcohol) Depression Answer Date Recorded Patient Health Questionnaire-9 Score 7 04/30/2024 Patient Health Questionnaire-9 Score 7 04/30/2024 Last PHQ-9: Questionnaire Data Not on file 0 04/30/2024 Housing Stability Answer Date Recorded What is your housing situation today? I have mayraanne-marie burnette 04/21/[address] you [...] Orientation Straight 01/26/2022 10 :14 AM EDT documented as of this encounter Miscellaneous Notes * Telephone Encounter - Su Dinero RN - 09/25/2024 9:46 AM EDT TC to pt x2. No answer. VM left for pt to call the clinic back. MyChart message sent. * Telephone Encounter - Su Dinero RN - 09/25/2024 9:46 AM EDT ----- Message from Karla Chanel sent at 09/25/2024 8:30 AM EDT ----- Please call/message to review labs: - LDL cholesterol 120, goal less than 100. Please encourage lifestyle interventions - A1c in normal range. Testing for Hep C, syphilis, and HIV was negative. Thanks! ----- Message ----- From: Interface, Lab Results In Sent: 09/20/2024 5:15 PM EDT To: ANDERSON Donovan documented in this encounter Plan of Treatment Not on file documented as of this encounter Visit Diagnoses Not on filedocumented in this encounter Additional Health Concerns Assessment Noted Time PHQ-9 Depression Total Score: 7 04/30/19 25 2:21 PM EST documented as of this encounter Care Teams Kennel Hand Relationship Specialty Start Date End Date Didi Hernández MD [address] [place] [address] PCP - General Family Medicine 03/16/13 documented as of this encounter
== END 2024-09-26 15:09 | disposition home or self-care (01) ==
LOC: HO.HMGCX 15:08
PROVIDERS: PCP Student in an Organized Health Care Education/Training Program; Visit Provider Obstetrics & Gynecology
DX: D25.9 Leiomyoma of uterus, unspecified (principal)
CPT/HCPCS: 76830; 76856

== ENCOUNTER → 2024-09-26 15:10 | Outpatient (BNV) | payer MEDICAID, SELFPAY | PROVIDERS: PCP Student in an Organized Health Care Education/Training Program; Visit Provider Radiology Diagnostic Radiology | DX: D25.9 Leiomyoma of uterus, unspecified (principal) | CPT/HCPCS: 76830; 76856 ==

== ENCOUNTER 2024-10-25 10:04 | Outpatient (AMB) | payer MEDICAID, SELFPAY ==
--- NOTE | 2024-10-25 10:16 | MHC.OFFVIS ---
Intake Visit Reasons: US follow up Accompanied by: Self / Same As Patient Allergies No Known Allergies Allergy (Unknown, Verified 10/25/24 10:17) HPI Comments Details: Presenting for follow-up ultrasound regarding uterine myoma seen on previous pelvic ultrasound. The patient is doing well no abnormal uterine bleeding, pelvic pressure or pain. The patient is complaining of right labia minora cyst and development of 2 small lesions the right vulvar area that is irritating her Pelvic ultrasound done recently showed the following: Transabdominal scanning performed for overall anatomy. Transvaginal scanning performed for additional detail. LMP: Early August 2024 Anteverted uterus, heterogeneous in echotexture measuring 10.3 x 6.3 x 7.0 cm. Normal endometrium, measuring 7.0 mm thickness Uterine fibroids: Left superior fundal intramural 4.4 x 3.6 x 4.2 cm documented previously at 3.8 x 3.0 x 3.9 cm Left fundal intramural 1.6 x 1.4 x 1.4 cm not documented previously The right ovary measures, 2.2 x 1.0 x 1.8 cm. Normal sonographic appearance right ovary. The left ovary measures, 3.6 x 1.6 x 2.1 cm. Normal sonographic appearance left ovary. No adnexal masses or fluid collections. No free fluid. 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 Sexual orientation: Straight/Heterosexual Gender identity: Female Review of Systems Const All systems reviewed & are unremarkable except as noted in HPI and below Reports as per HPI and Reports no additional complaints GI Reports no additional complaints Reports no additional complaints Assessment & Plan Assessment & Plan (1) Uterine myoma: Code(s): D25.9 - Leiomyoma of uterus, unspecified Category: Medical Plan: Discussed with the patient the findings on pelvic ultrasound & the risk of myosarcoma; in addition reviewed with the patient that malignancy and pre malignancy cannot be ruled out without hysterectomy for pathological evaluation ; furthermore, explained to the patient the limitation of pelvic ultrasound and endometrial biopsy in the setting. Discussed with the patient the options of treatment including expectant management versus hysterectomy; the pros and cons, risks benefits of each approach were discussed with the patient including the fact that in cases of myosarcoma, surgical treatment can lead to early diagnosis and positively affects the prognosis; after further discussion, the patient decided to proceed with expectant management. Will repeat pelvic ultrasound periodically. Instructions given to patient to call in case any of the following occurs: pressure symptoms, abnormal uterine bleeding, pelvic pain; and to schedule a 12 months pelvic ultrasound (order placed) and a follow-up appointment . All questions answered, the patient verbalized understanding and agreed with the plan . (2) Labial cyst: Comment: With 2 labial lesions Code(s): N90.7 - Vulvar cyst Category: Medical Plan: Discussed with the patient the finding on pelvic exam right labia minora cyst and 2 lesions on the right labia. Recommended I&D of the right labia minora cyst and excision of the 2 labial lesions. Instructions given the patient to schedule an appointment within 2 weeks. All questions answered, the patient verbalized understanding Orders: Orders US pelvic and transvaginal 12 Months D25.9 - Leiomyoma of uterus, unspecified Coding Level of Care Code Est Pt Level 3 (86262) Diagnoses Uterine myoma D25.9 Labial cyst N90.7
--- OUTSIDE RECORDS SUMMARY | 2024-10-25 10:50 | XMS_ITS | Clinical Summary ---
Author Organization [employer] Address [address] [place] [address] Care Team Providers Care Wrapper Dipper Name Role Phone Didi Hernández MD Primary Care Provider [phone] Allergies Active Allergy Reactions Criticality Noted Date [...] at bedtime. 90 tablet 05/10/19 24 Active melatonin 5 MG tabletIndication s:Sleep difficulties Take 1-2 tablets (5-10 mg) by mouth if needed at bedtime (sleep). 90 tablet 3 04/28/19 25 Active fluticasone (Flonase) 50 MCG/ACT nasal sprayIndications :Allergic rhinitis, unspecified seasonality, unspecified trigger SPRAY 1 TO 2 SPRAYS INTO EACH NOSTRIL ONCE PER DAY. SHAKE GENTLY. BEFORE FIRST USE, PRIME PUMP. AFTER USE, CLEAN TIP AND REPLACE CAP. 48 mL 07/26/19 25 Active azithromycin (Zithromax) 500 MG tabletIndication s:Acute cough 500 mg on day 1, 250 mg day 2-5 3 tablet 06/18/20 25 Active pantoprazole (ProtoNix) 40 MG EC tablet TAKE 1 TABLET (40 MG) BY MOUTH BEFORE BREAKFAST. DO NOT CRUSH, CHEW, OR SPLIT. 90 tablet 09/23/19 25 Active ibuprofen 600 MG tablet TAKE 1 TABLET BY MOUTH IF NEEDED IN THE MORNING, NOON, AND AT BEDTIME FOR PAIN OR FEVER FOR 10 DAYS 30 tablet 09/23/19 25 Active Ventolin HFA 108 (90 Base) MCG/ACT inhalerIndicatio ns:Acute cough INHALE 2 PUFFS EVERY 4 HOURS IF NEEDED FOR WHEEZING. 18 g 10/07/19 25 Active citalopram (CeleXA) 10 MG tabletIndication s:JOSETTE (generalized anxiety disorder) TAKE 1 TABLET BY MOUTH ONCE DAILY 90 tablet 1 10/24/19 25 Active citalopram (CeleXA) 10 MG tabletIndication s:JOSETTE (generalized anxiety disorder) Take 1 tablet (10 mg) by mouth Once per day. 90 tablet 1 04/28/19 25 025 Discontinued albuterol 108 (90 Base) MCG/ACT inhalerIndicatio ns:Acute cough Inhale 2 puffs every 4 (four) hours if needed for wheezing. 18 g 09/14/19 25 025 Discontinued predniSONE (Deltasone) 20 MG tabletIndication s:Acute cough Take 2 tablets (40 mg) by mouth Once per day for 5 days. 10 tablet 09/21/19 25 025 benzonatate (Tessalon Perles) 100 MG capsuleIndicatio ns:Acute cough Take 1 capsule (100 mg) by mouth if needed in the morning, at noon, and at bedtime for cough for up to 7 days. Do not crush or chew. 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 Toribio EMB completed Dec 2023. Path: Benign mid-late secretory endometrium; no atypia or carcinoma. Assessment & Plan (04/30/2024 2:10 PM EST): -Cont to monitor bleeding pattern and f/up with specialist PRN Healthcare maintenance 04/28/2024 Overview (04/30/2024): Pap: 08/05/23 NILM, HPV neg (Dr. Toribio) Mammo: BIRADS 1 09/08/23 Colonoscopy: routine screening starting at 45 y/o OPH: Following with [facility] (next May 15, 2024) Last comprehensive exam: 04/28/24 Dental: referral to [facility] Dental 04/28/24 Dysphagia 05/10/2023 Overview (04/30/2024): [...] Center 06/09/2023 9:15 AM Didi Hernández MD [facility] MED C JOSETTE (generalized anxiety disorder) 01/18/2023 Assessment & Plan (04/30/2024 2:12 PM EST): - : following with [facility] - Re-start lexapro 10mg daily. Reviewed med [...] for herself PLAN: 1. Follow up with [facility]: Recommended for follow-up: 02/01/23 at 10am in person 2. Patient goal is to improve mentla health 3. Behavioral Recommendations a. Ind. Therapy, referral will be submitted b. IB follow up c. Use of coping skills provided Current moderate episode of major depressive disorder without prior episode 01/18/2023 Assessment & Plan (02/01/2023 12:09 PM EST): Assessment: Patient presented with anxiety and depressive sxs. Symptoms present in the context of stress relationship with partner and low self-esteem. Patient referred to [facility] in [place], already received call that she is on waiting list. At this time Nadeem Toribio meets criteria for Visit Diagnoses: Problem List Items Addressed This Visit Other JOSETTE (generalized anxiety disorder) Current moderate episode of major depressive disorder without prior episode (CMS/HCC) Patient ready to address current needs Yes Strengths include willing to advocate for herself PLAN: 1. Follow up with [facility]: Recommended for follow-up: 02/22/23 at 10am in person 2. Patient goal is to improve mentla health 3. Behavioral Recommendations a. Ind. Therapy, referral submitted to [facility], patient on waiting list b. [facility] follow up c. Use of coping skills provided and increase self-care practice Encounters Date Type Department Care Team Description 10/22/2024 Refill [facility] [address] [place] [address] Karla Chanel FNP JOSETTE (generalized anxiety disorder) 10/10/2024 Refill [facility] [address] [place] [address] Washington Zhao MD 10/05/2024 Refill [facility] [address] [place] [address] Pierre Leone MD Acute cough 10/04/2024 Telephone [facility] [address] [place] [address] Didi Hernández MD Nurse Triage 09/26/2024 Orders Only [facility] External Provider, [facility] 09/22/2024 Refill [facility] [address] [place] [address] Didi Hernández MD 09/21/2024 Refill [facility] [address] [place] [address] Washington Zhao MD 09/21/2024 Telephone [facility] [address] [place] [address] Didi Hernández MD Lab Orders 09/21/2024 Results Follow-Up [facility] [address] [place] [address] Pierre Leone MD Hemoglobin A1c, HIV-1/2 Antigen and Antibodies, Fourth Generation, with Reflexes, Hepatitis C Viral RNA, Quantitative, Real-Time PCR, Additional followed-up results: 2 09/21/2024 Results Follow-Up [facility] [address] [place] [address] Didi Hernández MD XR Chest 2 Views 09/20/2024 3:00 PM EDT Office Visit [facility] [address] [place] [address] Pierre Leone MD Acute cough (Primary Dx); Acute cough 09/20/2024 Travel 09/18/2024 Telephone [facility] [address] [place] [address] Didi Hernández MD Letter for School/Work 09/13/2024 3:40 PM EDT Office Visit [facility] [address] [place] [address] Pierre Leone MD Acute cough (Primary Dx) 09/13/2024 Travel 09/13/2024 Telephone [facility] [address] [place] [address] Didi Hernández MD Nurse Triage 09/12/[address] [address] Didi Hernández MD Nurse Triage from Last 3 Months Immunizations Immunization Administration [...] Date Last Done Comments Disability Screening 1980 HPV Vaccines (1 - 3-dose series) 1996 Hepatitis B Vaccines (3 of 3 - 19+ 3-dose series) 06/23/2024 04/28/2024, 09/24/2023 Mammogram 09/07/2024 09/08/2023 Influenza Vaccine (#1) 2024 , 02/02/2023, 02/02/2012 Alcohol/Substance Use Screening 04/28/2025 04/28/2024 SDOH Screening [...] 10/21/1982, Additional history exists HIV Screening Completed 09/20/2024, 09/10/2023 Hepatitis C Screening Completed 09/20/2024 , 09/10/2023, 02/02/2023 HIB Vaccines Aged Out No longer eligi [...] Procedure Name Priority Date/Time Associated Diagnosis Comments US PELVIS TRANSVAGINAL Routine 11:21 AM EDT C-REACTIVE PROTEIN Routine 09/20/2024 4: 53 PM EDT Acute cough SED RATE BY MODIFIED WESTERGREN Routine 09/20/2024 4:53 PM EDT Acute cough CBC WITH AUTO DIFFERENTIAL Routine 09/20/2024 4:53 PM EDT Acute cough HIV 1/2 ANTIGEN/ANTIBODY, FOURTH GENERATION W/RFL Routine 09/20/2024 4:53 PM EDT Healthcare maintenance RPR (MONITOR) W/REFL TITER Routine 09/20/2024 4:53 PM EDT Healthcare maintenance HEPATITIS C VIRAL RNA, QUANTITATIVE, REAL-TIME PCR Routine 09/20/2024 4:53 PM EDT Healthcare maintenance HEMOGLOBIN A1C Routine 09/20/2024 4:53 PM EDT Healthcare maintenance LIPID PANEL, STANDARD Routine 09/20/2024 4:53 PM EDT Healthcare maintenance XR CHEST 2 VIEWS Routine 09/20/2024 3:47 PM EDT Acute cough POCT RAPID COVID ANTIGEN Routine 09/20/2024 3:37 PM EDT Acute cough POCT INFLUENZA A Routine 09/20/2024 3:36 PM EDT Acute cough POCT INFLUENZA B Routine 09/20/2024 3:35 PM EDT Acute cough BI MAMMOGRAM SCREENING TOMOSYNTHESIS BILATERAL Routine 09/08/2023 10:35 AM EDT PAP SMEAR Routine 08/05/2023 11:03 AM EDT THINPREP IMAGING PAP AND HPV MRNA E6/E7, WITH CT/NG, TRICHOMONAS Routine 08/12/2021 3:58 PM EDT from Last 3 Months or Most Recently Relevant to Health Maintenance Results * US Pelvis Transvaginal (09/28/2024 11:21 AM EDT) Anatomical Region Laterality Modality Pelvis Ultrasound 09/28/2024 11:2 1 AM EDT Narrative 09/28/2024 11:23 AM EDT [facility] [address] [place] [address] [place] [address] Ultrasound Report Signed Patient: Nadeem Toribio MR#: [id number] 5 : 1980 Acct:[id number] Age/Sex: 44 / F ADM Date: 09/26/24 Loc: HO.HMGCX Attending Dr: Todd Toribio MD Ordering Physician: Todd Toribio MD Date of Service: 09/26/24 Procedure(s): US pelvic and transvaginal Accession Number(s): [id number] cc: Didi Hernández MD; Todd Toribio MD CLINICAL HISTORY: D25.9 - Leiomyoma of uterus, unspecified US pelvis transabdominal and transvaginal with color Doppler Comparison: Prior relevant studies were not available for comparison at the time of interpretation Findings: Transabdominal scanning performed for overall anatomy. Transvaginal scanning performed for additional detail. LMP: Early August 2024 Anteverted uterus, heterogeneous in echotexture measuring 10.3 x 6.3 x 7.0 cm. Normal endometrium, measuring 7.0 mm thickness Uterine fibroids: Left superior fundal intramural 4.4 x 3.6 x 4.2 cm documented previously at 3.8 x 3.0 x 3.9 cm Left fundal intramural 1.6 x 1.4 x 1.4 cm not documented previously The right ovary measures, 2.2 x 1.0 x 1.8 cm. Normal sonographic appearance right ovary. The left ovary measures, 3.6 x 1.6 x 2.1 cm. Normal sonographic appearance left ovary. No adnexal masses or fluid collections. No free fluid. Impression: 1. Leiomyomatous uterus. 2. Normal thickness endometrium. 3. Normal ovaries/adnexa This document has been electronically signed by: Donte Henley MD on 09/28/2024 11:21:48 Dictated By: Donte Henley MD Signed By: <Electronically signed by Donte Henley MD in OV> 09/28/24 1123 DD/ 1121 TD/TT: 09/28/24 1121 Senior Treasury Consultant: Procedure Note Donotuseinterpreter, Image - 09/28/2024 [facility] Primary Care [facility] [place] [address] Ultrasound Report Signed Patient: Nadeem Toribio#: [id number] 5 : 1980Acct:[id number] Age/Sex: 44 / FADM Date: 09/26/24 Loc: HO.HMGCX Attending Dr: Todd Toribio MD Ordering Physician: Todd Toribio MD Date of Service: 09/26/24 Procedure(s): US pelvic and transvaginal Accession Number(s): [id number] cc: Didi Hernández MD; Todd Toribio MD CLINICAL HISTORY: D25.9 - Leiomyoma of uterus, unspecified US pelvis transabdominal and transvaginal with color Doppler Comparison: Prior relevant studies were not available for comparison at the time of interpretation Findings: Transabdominal scanning performed for overall anatomy. Transvaginal scanning performed for additional detail. LMP: Early August 2024 Anteverted uterus, heterogeneous in echotexture measuring 10.3 x 6.3 x 7.0 cm. Normal endometrium, measuring 7.0 mm thickness Uterine fibroids: Left superior fundal intramural 4.4 x 3.6 x 4.2 cm documented previously at 3.8 x 3.0 x 3.9 cm Left fundal intramural 1.6 x 1.4 x 1.4 cm not documented previously The right ovary measures, 2.2 x 1.0 x 1.8 cm. Normal sonographic appearance right ovary. The left ovary measures, 3.6 x 1.6 x 2.1 cm. Normal sonographic appearance left ovary. No adnexal masses or fluid collections. No free fluid. Impression: 1. Leiomyomatous uterus. 2. Normal thickness endometrium. 3. Normal ovaries/adnexa This document has been electronically signed by: Donte Henley MD on 09/28/2024 11:21:48 Dictated By: Donte Henley MD Signed By: <Electronically signed by Donte Henley MD in OV> 09/28/24 1123 DD/ 1121 TD/TT: 09/28/24 1121 Senior Treasury Consultant: [facility] External Provider IMG US PROCEDURES Edited Result - Final * Hepatitis C Viral RNA, Quantitative, Real-Time PCR (09/20/2024 4:53 PM EDT) Pathologist [facility] Hepatitis C Viral Load <15 NOT DETECTED NOT DETECTED IU/mL [facility] HCV Log PCR <1.18 NOT DETECTED NOT DETECTED Log IU/mL [facility] Comment:For additional infor matmaría, please refer tohttp://education.[email or web address]/faq/[email or web address](This link is being provided for informational/educational purposes only.)THIS TEST WAS PERFORMED AT:[facility] [place] [phone] YODER MD Blood 09/20/2024 4:53 PM EDT 09/20/2024 4:53 PM EDT Karla Chanel [address] MAGISTRATE LAB BLOOD ORDERABLES Final Res ult [facility] [address] [place] [phone] * (ABNORMAL) CBC auto differential (09/20/2024 4:53 PM EDT) Pathologist [facility] White Blood Count 11.3(H) 4.8 - 10.8 X10*3/uL [facility] Red Blood Count 4.74 4.20 - 5.50 X10*6/uL [facility] Hemoglobin 12.7 12.0 - 16.0 g/dl [facility] Hematocrit 38.2 37.0 - 47.0 % [facility] Mean Corpuscular Volume 80.6 80.0 - 98.0 fL [facility] Mean Corpuscular Hemoglobin 26.8(L) 27.0 - 33.0 pg [facility] Mean Corpuscular HGB Conc 33.2 31.0 - 35.0 g/dl [facility] Red Cell Distribution Width 13.1 11.0 - 16.0 % [facility] Platelet Count 393 160 - 400 X10*3/uL [facility] Mean Platelet Volume 9.3(L) 9.4 - 12.3 fL [facility] Neutrophils Percent Auto 61.0 45 - 73 % [facility] Imm Gran Pct Auto 0.4 0.0 - 0.4 % [facility] Lymphocytes Percent Auto 26.1 20 - 40 % [facility] Monocytes Percent Auto 6.0 2 - 11 % [facility] Eosinophils Percent Auto 6.2(H) 0 - 4 % [facility] Basophils Percent Auto 0.3 0 - 2 % [facility] NRBC Pct Auto 0.0 0.0 - 0.2 /100WBC [facility] Neutrophils Absolute Auto 6.9 2.0 - 8.3 x10*3/uL [facility] Imm Gran Abs Auto 0.04(H) 0.00 - 0.03 X10*3/uL [facility] Lymphocytes Absolute Auto 3.0 1.2 - 4.9 X10*3/uL [facility] Monocytes Absolute Auto 0.7 0.1 - 1.2 X10*3/uL [facility] Eosinophils Absolute Auto 0.7(H) 0.0 - 0.4 X10*3/uL [facility] Basophils Absolute Auto 0.0 0.0 - 0.2 X10*3/uL [facility] NRBC Abs Auto 0.000 0.0 - 0.012 X10*3/uL [facility] Blood Venous blood specimen / Unknown 09/20/2024 4:53 PM EDT 09/20/2024 4:53 PM EDT us Pierre Leone MD LAB BLOOD ORDERABLES Final Result Performing Organization Address [facility] Co de Phone Number [facility] [address] [place] [phone] * RPR (Monitor) with Reflex to??Titer (09/20/2024 4:53 PM EDT) RPR (Monitor) w/Refl Titer NON-REACTI VE NON-REACT [facility] Comment:THIS TEST WAS PERFOR MED AT:[facility] [place] [phone] YODER MD Rapid Plasma Reagin Ab Titer TNP [facility] Blood Venous blood specimen / Unknown 09/20/2024 4:53 PM EDT 09/20/2024 4:53 PM EDT us Karla Chanel [address] MAGISTRATE LAB BLOOD ORDERABLES Final Res ult Performing Organization Address [facility] Co de Phone Number [facility] [address] [place] [address] [phone] * HIV-1/2 Antigen and Antibodies, Fourth Generation, with Reflexes (09/20/2024 4:53 PM EDT) HIV AB/AG Nonreactive Nonreactive [facility] Comment:HIV-1 p24 Ag and/or HIV-1/HIV-2 Ab not detected.A test result that is nonreactive does not exclude thepossibility of exposure to or infection with HIV-1 and/orHIV-2. Nonreactive results in this assay for individualswith prior exposure to HIV-1 and/or HIV-2 may be due toantigen and antibody levels that are below the limit ofdetection of this assay.The [facility] [employer] [facility] [employer] HIV Ag/Ab Combo assay result andsupplemental assay results should be interpreted inconjunction with the patient's clinical presentation,history and other laboratory results. If the results areinconsistent with clinical evidence, additional testing issuggested to confirm the result. Blood Venous blood specimen / Unknown 09/20/2024 4:53 PM EDT 09/20/2024 4:53 PM EDT us Karla Chanel [address] MAGISTRATE LAB BLOOD ORDERABLES Final Res ult Performing Organization Address [facility] Co de Phone Number [facility] [address] [place] [address] [phone] * (ABNORMAL) Sed Rate by Modified Ericergren (09/20/2024 4:53 PM EDT) Erythrocyte Sedimentation Rate 23(H) 0 - 20 MM/HR [facility] Comment:Patients with polycy themia and many hemoglobin abnormalitiesmay have depressed sed rates whereas patients with anemiamay have elevated sed rates. Blood Venous blood specimen / Unknown 09/20/2024 4:53 PM EDT 09/20/2024 4:53 PM EDT us Pierre Leone MD LAB BLOOD ORDERABLES Final Result Performing Organization Address [facility] Co de Phone Number [facility] [address] [place] [phone] * C-reactive Protein (09/20/2024 4:53 PM EDT) C Reactive Protein 0.26 < or = 0.50 mg/dL [facility] Blood Venous blood specimen / Unknown 09/20/2024 4:53 PM EDT 09/20/2024 4:53 PM EDT us Pierre Leone MD LAB BLOOD ORDERABLES Final Result Performing Organization Address City/[facility] Co de Phone Number [facility] [address] [place] [phone] * Hemoglobin A1c (09/20/2024 4:53 PM EDT) Hemoglobin A1c 5.2 <6.0 % [facility] Comment:Hemoglobin A1C Refer ence Range Adults: 4.8 - 6.0 % Non diabetic: < 6.0 % Goal: < 7.0 %Additional Action Suggested: > 8.0 %Note: Hemoglobin A1c results are invalid for patients with abnormal amounts of HbF. Blood transfusions may impact the HbA1c concentration in the patient sample. Estimated Average Glucose 103 mg/dL [facility] Comment:eAG = Estimated ave rage glucose which is %A1C expressed asaverage glucose, using the formula of the F8X-PnfzvlxRbpomaz Glucose study (ADAG), Diabetes Care, Vol.31,#8,Oct. 2007 Blood Venous blood specimen / Unknown 09/20/2024 4:53 PM EDT 09/20/2024 4:53 PM EDT us Karla Chanel [address] MAGISTRATE LAB BLOOD ORDERABLES Final Res ult Performing Organization Address [facility] Co de Phone Number [facility] [address] [place] [phone] * (ABNORMAL) Lipid Panel, Standard (09/20/2024 4:53 PM EDT) Triglycerides 112 <150 mg/dL [facility] Comment:Desirable Triglyceri de: less than 150 mg/dLBorderline High Triglyceride 150-199 mg/dLHigh Triglyceride: 200-499 mg/dLVery High Triglyceride: greater than or equal to 5OO mg/dL Cholesterol 189 <200 mg/dL [facility] Comment:Desirable Cholestero l: less than 200 mg/dLBorderline High Cholesterol: 200-239 mg/dLHigh Cholesterol: greater than 239 mg/dL LDL Cholesterol Calculated 120(H) <100 mg/dL [facility] Comment:Desirable LDL: less than 100 mg/dLNear Optimal/Above Optimal LDL: 110- 129 mg/dLBorderline High LDL: 130-159 mg/dLHigh LDL: 160-189 mg/dLVery High LDL: greater than or equal to 190 mg/dL HDL Cholesterol 47 >40 mg/dL [facility] Comment:Desirable HDL: great er than 40 mg/dL Note: This HDL assay may give artificially low results in patients with liver disease. Blood Venous blood specimen / Unknown 09/20/2024 4:53 PM EDT 09/20/2024 4:53 PM EDT us Karla Chanel [address] MAGISTRATE LAB BLOOD ORDERABLES Final Res ult Performing Organization Address City/State/[facility] Co de Phone Number [facility] [address] [place] [phone] * XR Chest 2 Views (09/20/2024 3:47 PM EDT) Anatomical Region Laterality Modality Chest Radiographic Lisa ging 09/20/2024 3:47 PM EDT Narrative 09/20/2024 5:50 PM EDT [address] [address] XRay Report Signed Patient: Nadeem Toribio MR#: [id number] 5 : 1980 Acct:[id number] Age/Sex: 44 / F ADM Date: 09/20/24 Loc: HO.XRAY Attending Dr: Pierre Leone MD Ordering Physician: Pierre Leone MD Date of Service: 09/20/24 Procedure(s): XR chest 2V Accession Number(s): [id number] cc: Pierre Leone MD; Didi Hernández MD [...] signed by Heron Almaraz MD in OV> 09/20/241746 DD/ 46 TD/TT: 09/20/241641 Senior Treasury Consultant: Procedure Note Donotuseinterpreter, Image - 09/20/[address] [address] XRay Report Signed Patient: Nadeem ToribioMR#: [id number] 5 : 1980Acct:[id number] Age/Sex: 44 / FADM Date: 09/20/24 Loc: HO.XRAY Attending Dr: Pierre Leone MD Ordering Physician: Pierre Leone MD Date of Service: 09/20/24 Procedure(s): XR chest 2V Accession Number(s): [id number] cc: Pierre Lenoe MD; Didi Hernández MD EXAMINATION: XR CHEST [...] signed by Heron Almaraz MD in OV> 09/20/241746 DD/ 46 TD/TT: 09/20/241641 Senior Treasury Consultant: us Pierre Leone MD IMG XR PROCEDURES Final Res ult * POCT Rapid Covid-19 BinaxNOW (09/20/2024 3:37 PM EDT) Rapid COVID Ag Negative QC Media Lot # [id number] Lot# Expiration Date 7,026 Comment:CONTOLS PASSED Swab 09/20/2024 3:37 PM EDT Pierre Leone MD POINT OF CARE TEST ENTER/ED IT ORDERABLES Final Result * POCT Rapid Influenza A OSOM (09/20/2024 3:36 PM EDT) Pathologist [facility] Rapid Influenza A Ag Negative Negative, Indeterminate QC Media Lot # [id number] Comment:CONTROLS PASSED Lot# Expiration Date ,025 Swab Nasopharyngeal structure / Unknown 09/20/2024 3:36 PM EDT Pierre Leone MD POINT OF CARE TEST ENTER/ED IT ORDERABLES Final Result * POCT Rapid Influenza B OSOM (09/20/2024 3:35 PM EDT) [facility] Rapid Influenza B Ag Negative Negative, Indeterminate QC Media Lot # [id number] Comment:CONTROL PASSED Lot# Expiration Date ,025 Swab 09/20/2024 3:35 PM EDT Pierre Leone MD POINT OF CARE TEST ENTER/ED IT ORDERABLES Final Result * BI Mammogram Screening Tomosynthesis Bilateral (09/08/2023 10:35 AM EDT) Anatomical Region Laterality Modality Breast Bilateral Mammography 09/08/2023 10:3 5 AM EDT Narrative 10/08/2023 9:02 AM EDT [facility] [address] [place] [address] Mammography Report Signed Patient: Nadeem Toribio MR#: [id number] 5 : 1980 Acct:[id number] Age/Sex: 43 / F ADM Date: 09/08/23 Loc: NATALIYA.MAMMO Attending Dr: Todd Toribio MD Ordering Physician: Todd Toribio MD Results: 1Negativ e Date of Service: 09/08/23 Follow Up: 1 Year From Orig inal Mammogram Procedure(s): MM tomosynthesis screening BI Accession Number(s): [id number] cc: Didi Hernández MD; Todd Toribio MD [...] in OV> 10/08/23 0858 DD/ 1035 TD/TT: Senior Treasury Consultant: Procedure Note Donotuseinterpreter, Image - 10/08/20[facility] [address] [place], [place] [address] Mammography Report Signed Patient: Nadeem Toribio#: [id number] 5 : 1980Acct:[id number] Age/Sex: 43 / FADM Date: 09/08/23 Loc: CIARA Attending Dr: Todd Toribio MD Ordering Physician: Todd Toribio MDResults: 1Nega chuck Date of Service: 09/08/23Follow Up: 1 Year From Orig inal Mammogram Procedure(s): MM tomosynthesis screening BI Accession Number(s): [id number] cc: Didi Hernández MD; Todd Toribio MD [...] in OV> 10/08/23 0858 DD/ 1035 TD/TT: Senior Treasury Consultant: [facility] External Provider IMG BI PROCEDURES Final Result * Pap Smear (08/05/2023 11:03 AM EDT) 08/05/2023 11:0 3 AM EDT 08/06/2023 7:00 AM EDT [facility] - 08/24/2023 4:53 PM EDT ----- ------- Name: Nadeem Toribio Age/Sex: 43/F : 1980 Unit#: [id number] Attend Dr: Todd Toribio MD Re08/05/23 Status: DEP REF Location: [facility] Disch: ----- ------- SPEC : [id number] RECD: 08/06/23 STATUS: ARTHUR SEWELL NUM: [id number] PELON: 08/05/23-110[address] [facility] [address]: Todd Toribio MD ENTERED: 08/06/23 SP TYPE: Pap Smr OTHR DR: Didi Hernández MD ORDERED: Pap Smear [...] 59, 66, 68) HPV testing performed by [facility], [place], [place]. See reference laboratory portion of the EMR for entire report. Clinical Information LMP: 08/02/2023 Previous PAP test: Unknown date/findings Other history: Abnormal uterine bleeding Material Received ThinPrep-Cervical Copies To: Didi Hernández MD [address] [place] [phone] Todd Toribio MD [address] [place] [address] [address] [place] [phone] ----- ------- Signed (signature on file) Mouna Middleton 08/24/23 1653 ----- ------- END OF REPORT us Generic External Data Provider LAB CYTOLOGY APOLONIAChuck TORRES Final Result [facility] [address] [place] [phone] * THINPREP TIS PAP AND HPV mRNA E6/E7, CT/NG, TRICH (08/12/2021 3:58 PM EDT) Chlamydia trachomatis RNA, TMA, Urogenital NOT DETECTED NOT DETECTED [facility] Clinical Information: ABNL BLEEDING [facility] COMMENT SEE COMMENT [facility] Comment: The analytical performance characteristics of this assay, when used to test SurePath(TM) specimens have been determined by [facility]. The modifications have not been cleared or approved by the FDA. This assay has been validated pursuant to the CLIA regulations and is used for clinical purposes. For additional information, please refer to https://education.[employer].Wine Ring/faq/HWC285 (This link is being provided for information/ [...] has been evaluated with computer assisted technology. [facility] Shearing Shed Hand: SEE COMMENT [facility] Comment: MAA, CT(ASCP) CT screening location: [address] [address] HPV nRNA E6/E7 Not Detected Not Detected [facility] Comment: Methodology: Transformation Specialist-Mediated Amplification This assay detects E6/E7 viral messenger RNA (mRNA) from 14 high-risk HPV types (16,18,31,33,35,39,45,51,52,56,58,59,66,68). The analytical performance characteristics of this assay have been determined by [facility]. The modifications have not been cleared or approved by the FDA. This assay has been validated pursuant to the CLIA regulations and is used for clinical purposes. For additional information, please refer to http://[employer].K[employer] Intelligence/faq/ZRY355l4 (This link if provided for information/ educational purposes only.) Interpretation/Re sult: Negative for intraepithelial lesion or malignancy. [facility] LMP: 08/02/2021 [facility] Neisseria gonorrhoeae RNA, TMA, Urogenital NOT DETECTED NOT DETECTED [facility] Prev. BX: NONE GIVEN [facility] Prev. PAP: NONE GIVEN [facility] Review Shearing Shed Hand: SEE COMMENT [facility] Comment: DCR, CT(ASCP) CT screening location: [place] [address] SOURCE: None given [facility] Statement Of Adequacy: SEE COMMENT [facility] Comment: Satisfactory for evaluation. Endocervical/transformation zone component present. Trichomonas vaginalis, QL, TMA, PAP Vial NOT DETECTED NOT DETECTED [facility] Comment: The analytical performance characteristics of this assay have been determined by [facility]. The modifications have not been cleared or approved by the FDA. This assay has been validated pursuant to the CLIA regulations and is used for clinical purposes. For additional information, please refer to http://[employer]/ faq/Trichomonastma (This link is being provided for information/ educational purposes only.) 08/12/2021 3:58 PM EDT Elizabeth [facility]TER[facility] LAB PATHOLOGY ORDERABLES Final Result [facility] [address] from Last 3 Months or Most Recently Relevant to Health Maintenance Insurance [facility] C3 Care Teams Wrapper Dipper Relationship Specialty Start Date End Date Didi Hernández MD [address] [place] [phone] PCP - General Family Medicine 03/16/13
== END 2024-10-25 10:48 | disposition home or self-care (01) ==
LOC: HO.HWS 10:04
PROVIDERS: PCP Student in an Organized Health Care Education/Training Program; Visit Provider Obstetrics & Gynecology
DX: D25.9 Leiomyoma of uterus, unspecified (principal); N90.7 Vulvar cyst
CPT/HCPCS: 99213

== ENCOUNTER → 2024-10-25 10:04 | Outpatient (BNVA) | payer MEDICAID, SELFPAY | PROVIDERS: PCP Student in an Organized Health Care Education/Training Program; Visit Provider Obstetrics & Gynecology | DX: Z71.2 Person consulting for explanation of examination or test findings (principal); N90.7 Vulvar cyst; D25.9 Leiomyoma of uterus, unspecified | CPT/HCPCS: 99212 ==

== ENCOUNTER 2025-02-07 11:11 | Outpatient (REF) | payer MEDICAID, SELFPAY ==
[2025-02-08 07:11] LABS: Chlamydia pneumoniae PCR Not Detected (Not Detect.); Coronavirus 229E PCR Not Detected (Not Detect.); Coronavirus HKU1 PCR Not Detected (Not Detect.); Coronavirus NL63 PCR Not Detected (Not Detect.); Coronavirus OC43 PCR Not Detected (Not Detect.); Influenza A H1 PCR Not Detected (Not Detect.); Influenza A H1-2009 PCR Not Detected (Not Detect.); Influenza A H3 PCR Not Detected (Not Detect.); RSV PCR Not Detected (Not Detect.); Rhino/Enterovirus PCR Not Detected (Not Detect.); SARS-CoV-2 PCR Not Detected (Not Detect.)
== END 2025-02-07 11:12 | disposition home or self-care (01) ==
LOC: HO.CHCLNP 11:11
PROVIDERS: Visit Provider Family Medicine
DX: J06.0 Acute laryngopharyngitis (principal)
CPT/HCPCS: 87633